=== PATIENT | male | born 1980 | race Caucasian/White ===

== ENCOUNTER 2016-09-20 09:54 | Emergency (ER) | payer BC ==
[~2016-09-20] VITALS: Ht 180.3 cm; Wt 89.7 kg
[~2016-09-20 09:54] MED LIST: DEXL60CA4 PO; LPT/20 PO
[2016-09-20 10:04] VITALS: Ht 180.3 cm; Wt 89.7 kg
[2016-09-20] MEDS ORDERED: ONDANSETRON INJ 2 MG/ML 2 ML VIAL IV STA (10:23)
[2016-09-20] MEDS ORDERED: SODIUM CHLORIDE 0.9% 1000ML 1,000 ML IV STA (10:23)
[2016-09-20 10:45] LABS: BASO % 0.1 %; BASO ABS # 0.02 K/uL (0-0.2); COMPLETE YES; HEMATOCRIT 46.6 % (42-52); IG% 0.3 %; LYMPH % 7.4 %; LYMPH ABS # 1.02 K/uL (1.2-3.4); MEAN CELL VOLUME 91.2 fL (80-100); MEAN CORPUSCULAR HEMOGLOBIN 30.5 pg (25-34); MEAN CORPUSCULAR HGB CONC 33.5 g/dl (32-36); MEAN PLATELET VOLUME 11.2 fL (7.4-10.4); MONO % 10.1 %; NEUT % 82.1 %; PLATELET COUNT 139 K/uL (130-400); RED BLOOD COUNT 5.11 M/uL (4.7-6.1); WHITE BLOOD COUNT 13.84 K/uL (4.8-10.8)
--- NOTE | 2016-09-20 10:48 | DIAGNOSTIC IMAGING REPORT ---
CHEST ONE VIEW PORTABLE CLINICAL HISTORY: Fever. Pain radiating to the abdomen. COMPARISON STUDY: 05/07/2014 FINDINGS: The cardiac and mediastinal contours are normal. There is no evidence of focal pulmonary consolidation. There is no evidence of failure. No pleural effusions are visualized.[ There is no free intraperitoneal air. IMPRESSION: No active disease in the chest. Electronically signed by: Yaakov Leone M.D. 09/20/2016 10:47 AM Dictated Date/Time: 09/20/2016 10:46 AM
[2016-09-20] MEDS ORDERED: OPTIRAY 320 IV PRN (11:00)
[2016-09-20 11:07] LABS: BUN/CREATININE RATIO 9.1 (10-20); CREATININE 1.5 mg/dl (0.60-1.40); POTASSIUM 3.6 mmol/L (3.5-5.1)
[2016-09-20 12:00] LABS: URINE APPEARANCE CLEAR (CLEAR); URINE BILIRUBIN NEG (NEG); URINE COLOR DK YELLOW; URINE NITRITE NEG (NEG); URINE SPECIFIC GRAVITY 1.025 (1.000-1.030); UROBILINOGEN POS (NEG); ZZUR CULT IF INDIC CLEAN CATCH NO
[2016-09-20 12:03] LABS: MANUAL MICROSCOPIC REQUIRED? NO; REVIEW REQ? NO
--- NOTE | 2016-09-20 13:10 | DIAGNOSTIC IMAGING REPORT ---
CT ABD/PELVIS IV AND ORAL CONT CLINICAL HISTORY: Left lower quadrant abdominal pain. Fever. Headache. COMPARISON STUDY: None. TECHNIQUE: Following the IV administration of 94 mL of Optiray-320, CT scan of the abdomen and pelvis was performed from the lung bases to the proximal femurs. Images are reviewed in the axial, sagittal, and coronal planes. IV contrast was administered without complication. CT DOSE: 399.15 mGy.cm FINDINGS: Lower chest: There are mild bibasal atelectatic changes. Liver: The contrast-enhanced liver is normal in size, contour, and attenuation. There is no intrahepatic biliary ductal dilatation. The hepatic veins and portal veins are patent. Gallbladder: Unremarkable. Spleen: Normal in size and attenuation. Pancreas: Unremarkable. Adrenal glands: Unremarkable. Kidneys: There is symmetric renal cortical enhancement. The kidneys are normal in size without hydronephrosis. Bowel: There are no transition zones indicate bowel obstruction. The appendix appears normal. There is no acute diverticulitis. There is no pathologic bowel wall thickening. Peritoneum: There is no intraperitoneal free air or abdominal ascites. There are postsurgical changes of a right inguinal hernia repair Vasculature: The abdominal aorta is normal in course and caliber. There is a retroaortic left renal vein Adenopathy: None. Pelvic viscera: The bladder, and pelvic viscera are unremarkable. Skeletal structures: No destructive osseous lesions are seen. IMPRESSION: 1. No acute intra-abdominal or pelvic findings 2. No evidence of bowel obstruction. No evidence of free air 3. Normal appendix. No evidence of acute diverticulitis. Electronically signed by: Yaakov Leone M.D. 09/20/2016 1:09 PM Dictated Date/Time: 09/20/2016 1:06 PM
[2016-09-20 13:35] VITALS: BP 113/71; PULSE 90; TEMP 39.2; O2SAT 97
--- NOTE | 2016-09-20 13:36 | EMERGENCY ROOM VISIT NOTE ---
History Report prepared by Biancaibvahe: Anthony Carlin Under the Supervision of: Dr. Alfredo Cooley D.O. First contact with patient: 10:12 Chief Complaint: FEVER Stated Complaint: HIGH FEVER, ACHEY History of Present Illness The patient is a 36 year old male who presents to the Emergency Room with complaints of waxing and waning fevers beginning two days ago. He also complains of a mild headache, nausea, LLQ abdominal pain, and a mild sore throat. He states that his fever tends to spike a few hours after eating. He states that his temperature has fluctuated between 101 and 105 degrees over the past few days. The patient denies any cough, urinary symptoms, diarrhea or vomiting. He states that his abdominal pain began two days ago as well and has been worsening. He has not had a bowel movement in two days. Source of History: patient Onset: Two days ago Symptom Intensity: 101-105 degrees Quality: other (fevers) Timing: waxes/wanes Modifying Factors (Worsening): eating Associated Symptoms: + headache (mild), + sorethroat (mild), + nausea, + abdominal pain (LLQ), No vomiting, No diarrhea, No urinary symptoms Review of Systems See HPI for pertinent positives & negatives. A total of 10 systems reviewed and were otherwise negative. Past Medical & Surgical Medical Problems: (1) WANDER (acute kidney injury) (2) Chest pain (3) Elevated troponin (4) Fever (5) Hyperglycemia (6) Hypotension (7) Leukocytosis (8) No Known Active Medical Problems (9) Vomiting Family History No pertinent family history stated. Social History Smoking Status: Never Smoker Alcohol Use: none Drug Use: none Occupation Status: employed Current/Historical Medications No Active Prescriptions or Reported Meds Allergies Coded Allergies: No Known Allergies (Unverified , 09/20/16) Physical Exam Vital Signs Date Time Temp Pulse Resp B/P (MAP) Pulse Ox O2 Delivery O2 Flow Rate FiO2 09/20/16 13:35 39.2 90 18 113/71 97 09/20/16 11:31 90 18 123/73 98 Room Air 09/20/16 10:04 37.7 97 18 126/75 94 Room Air Physical Exam CONSTITUTIONAL/VITAL SIGNS: Reviewed / noted above. GENERAL: Non-toxic in appearance. INTEGUMENTARY: Warm, dry, and [place]. HEAD: Normocephalic. EYES: without scleral icterus or trauma. ENT/OROPHARYNX: clear and moist. LYMPHADENOPATHY/NECK: Is supple without lymphadenopathy or meningismus. RESPIRATORY: Lungs clear and equal. CARDIOVASCULAR: Regular rate and rhythm. GI/ABDOMEN: Soft. No organomegaly or pulsatile mass. No rebound or guarding. Normal bowel sounds. Tender in the LLQ. EXTREMITIES: Warm and well perfused. BACK: No CVA tenderness. NEUROLOGICAL: Intact without focal deficits. PSYCHIATRIC: normal affect. MUSCULOSKELETAL: Normally developed with good muscle tone. Medical Decision & Procedures ER Provider Diagnostic Interpretation: Radiology results as stated below per my review and radiologist interpretation: CT ABD/PELVIS IV AND ORAL CONT FINDINGS: Lower chest: There are mild bibasal atelectatic changes. Liver: The contrast-enhanced liver is normal in size, contour, and attenuation. There is no intrahepatic biliary ductal dilatation. The hepatic veins and portal veins are patent. Gallbladder: Unremarkable. Spleen: Normal in size and attenuation. Pancreas: Unremarkable. Adrenal glands: Unremarkable. Kidneys: There is symmetric renal cortical enhancement. The kidneys are normal in size without hydronephrosis. Bowel: There are no transition zones indicate bowel obstruction. The appendix appears normal. There is no acute diverticulitis. There is no pathologic bowel wall thickening. Peritoneum: There is no intraperitoneal free air or abdominal ascites. There are postsurgical changes of a right inguinal hernia repair Vasculature: The abdominal aorta is normal in course and caliber. There is a retroaortic left renal vein Adenopathy: None. Pelvic viscera: The bladder, and pelvic viscera are unremarkable. Skeletal structures: No destructive osseous lesions are seen. IMPRESSION: 1. No acute intra-abdominal or pelvic findings 2. No evidence of bowel obstruction. No evidence of free air 3. Normal appendix. No evidence of acute diverticulitis. Electronically signed by: Yaakov Leone M.D. CHEST ONE VIEW PORTABLE FINDINGS: The cardiac and mediastinal contours are normal. There is no evidence of focal pulmonary consolidation. There is no evidence of failure. No pleural effusions are visualized.[ There is no free intraperitoneal air. IMPRESSION: No active disease in the chest. Electronically signed by: Yaakov Leone M.D. Laboratory Results 09/20/16 10:31 Red Blood Count 5.11, Mean Corpuscular Volume 91.2, Mean Corpuscular Hemoglobin 30.5, Mean Corpuscular Hemoglobin Concent 33.5, Mean Platelet Volume 11.2, Neutrophils (%) (Auto) 82.1, Lymphocytes (%) (Auto) 7.4, Monocytes (%) (Auto) 10.1, Eosinophils (%) (Auto) 0.0, Basophils (%) (Auto) 0.1, Neutrophils # (Auto ) 11.36, Lymphocytes # (Auto) 1.02, Monocytes # (Auto) 1.40, Eosinophils # (Auto ) 0.00, Basophils # (Auto) 0.02 09/20/16 10:31 Test 09/20/16 10:31 09/20/16 11:45 White Blood Count 13.84 K/uL (4.8-10.8) Red Blood Count 5.11 M/uL (4.7-6.1) Hemoglobin 15.6 g/dL (14.0-18.0) Hematocrit 46.6 % (42-52) Mean Corpuscular Volume 91.2 fL (80-100) Mean Corpuscular Hemoglobin 30.5 pg (25-34) Mean Corpuscular Hemoglobin Concent 33.5 g/dl (32-36) Platelet Count 139 K/uL (130-400) Mean Platelet Volume 11.2 fL (7.4-10.4) Neutrophils (%) (Auto) 82.1 % Lymphocytes (%) (Auto) 7.4 % Monocytes (%) (Auto) 10.1 % Eosinophils (%) (Auto) 0.0 % Basophils (%) (Auto) 0.1 % Neutrophils # (Auto) 11.36 K/uL (1.4-6.5) Lymphocytes # (Auto) 1.02 K/uL (1.2-3.4) Monocytes # (Auto) 1.40 K/uL (0.11-0.59) Eosinophils # (Auto) 0.00 K/uL (0-0.5) Basophils # (Auto) 0.02 K/uL (0-0.2) RDW Standard Deviation 43.8 fL (36.4-46.3) RDW Coefficient of Variation 13.1 % (11.5-14.5) Immature Granulocyte % (Auto) 0.3 % Immature Granulocyte # (Auto) 0.04 K/uL (0.00-0.02) Anion Gap 6.0 mmol/L (3-11) Est Creatinine Clear Calc Drug Dose 71.8 ml/min Estimated GFR () 68.0 Estimated GFR (Non- 58.6 BUN/Creatinine Ratio 9.1 (10-20) Calcium Level 9.0 mg/dl (8.5-10.1) Total Bilirubin 0.8 mg/dl (0.2-1) Direct Bilirubin 0.2 mg/dl (0-0.2) Aspartate Amino Transf (AST/SGOT) 12 U/L (15-37) Alanine Aminotransferase (ALT/SGPT) 17 U/L (12-78) Alkaline Phosphatase 71 U/L (45-117) Total Protein 7.5 gm/dl (6.4-8.2) Albumin 3.3 gm/dl (3.4-5.0) Lipase 155 U/L (73-393) Lyme Disease IgM Antibody NEG (NEG) Urine Color DK YELLOW Urine Appearance CLEAR (CLEAR) Urine pH 7.0 (4.5-7.5) Urine Specific [place] 1.025 (1.000-1.030) Urine Protein 2+ (NEG) Urine Glucose (UA) NEG (NEG) Urine Ketones 1+ (NEG) Urine Occult Blood NEG (NEG) Urine Nitrite NEG (NEG) Urine Bilirubin NEG (NEG) Urine Urobilinogen POS (NEG) Urine Leukocyte Esterase NEG (NEG) Urine WBC (Auto) 1-5 /hpf (0-5) Urine RBC (Auto) 5-10 /hpf (0-4) Urine Hyaline Casts (Auto) 0 /lpf (0-5) Urine Epithelial Cells (Auto) 10-20 /lpf (0-5) Urine Bacteria (Auto) NEG (NEG) Laboratory results as stated above per my review. Medications Administered Medications (Trade) Dose Ordered Sig/Neymar Route Start Time Stop Time Status Last Admin Dose Admin Sodium Chloride 1,000 ml @ 999 mls/hr Q1H1M STAT IV 09/20/16 10:23 09/20/16 11:23 DC 09/20/16 10:37 999 MLS/HR Ondansetron HCl (Zofran Inj) 4 mg NOW STAT IV 09/20/16 10:23 09/20/16 10:26 DC 09/20/16 10:37 4 MG Ibuprofen (Motrin Tab) 800 mg NOW STAT PO 09/20/16 13:38 09/20/16 13:39 DC 09/20/16 13:44 800 MG ED Course 1016: Previous medical records were reviewed. The patient was evaluated in room A3. A complete history and physical examination was performed. 1023: Ordered Zofran Inj 4 mg IV, Sodium Chloride 1000 ml @ 999 mls/hr IV. 1338: Ordered Motrin Tab 800 mg PO. 1350: On reevaluation, the patient is resting comfortably. I discussed the results and findings with the patient. He verbalized agreement of the treatment plan. He was discharged home. Medical Decision Differential considered: pancreatitis, hepatitis, or acute cholecystitis, AAA, UTI, pyelonephritis, kidney stones, appendicitis, diverticulitis, shingles, bowel obstruction mesenteric ischemia, intussusception,hernia, testicular torsion, ovarian torsion, ruptured ovarian cyst,ectopic , . This is a 36-year-old male who presents to the ED with a chief complaint of a fever and left lower quadrant abdominal pain. He has had the symptoms for about 2 days. He reports associated nausea but no vomiting or diarrhea. He states he has not had a bowel movement for 3 days. His temperature here is 37.7. His physical exam reveals some tenderness in the left lower quadrant. No other symptoms to suggest a cause for his fever. White blood cell count 13.8. Chest x-ray was negative for acute disease. Creatinine is 1.5. Lipase was negative. CT scan of the abdomen and pelvis did not show any acute process. Urine did not show infection. The patient was told the results. He was treated with IV fluids and IV Zofran. He denies any possible tick exposures. No sick contacts. The cause of his symptoms at this time are unclear. He does not appear to have an acute intra-abdominal process. Lyme was negative. His symptoms could be viral. He did complain of some very mild congestion but nothing significant was found on exam. He was told to return if he develops any new or worsening symptoms. Impression Primary Impression: Fever Additional Impression: LLQ abdominal pain Scribe Attestation The scribe's documentation has been prepared under my direction and personally reviewed by me in its entirety. I confirm that the note above accurately reflects all work, treatment, procedures, and medical decision making performed by me. Departure Information Dispostion Home / Self-Care Prescriptions No Active Prescriptions or Reported Meds Referrals Emelia Rvai D.O. (PCP) Patient Instructions My [facility] Additional Instructions Follow-up with your doctor on Thursday or Thursday if symptoms persist. Return here for worsening or new concerns. Take Tylenol or Motrin as needed for symptoms. Drink plenty of fluids and rest. Problem Qualifiers
[2016-09-20] MEDS ORDERED: IBUPROFEN 800 MG TAB PO STA (13:38)
== END 2016-09-20 13:48 | disposition home or self-care (01) ==
LOC: C.EDB 09:56 → C.EDA 13:48
DX: R50.9 Fever, unspecified (principal); R10.32 Left lower quadrant pain; R11.0 Nausea; Z87.898 Personal history of other specified conditions

== ENCOUNTER 2016-09-21 03:11 | Inpatient (IN) | payer BC ==
[2016-09-21] VITALS (31 sets, daily range): BP systolic 103–133; BP diastolic 64–87; PULSE 63–91; TEMP 36.7–37.8; O2SAT 92–100; Ht 180.3 cm; Wt 91.8 kg
[~2016-09-21] VITALS: Ht 180.3 cm; Wt 91.8 kg
[2016-09-21] MEDS ORDERED: SODIUM CHLORIDE 0.9% 1000ML 1,000 ML IV STA ×3 (03:21→04:43)
[2016-09-21 03:39] LABS: BASO % 0.1 %; BASO ABS # 0.02 K/uL (0-0.2); COMPLETE YES; EOS % 0.2 %; HEMATOCRIT 41.4 % (42-52); IG% 0.3 %; LYMPH ABS # 1.71 K/uL (1.2-3.4); MEAN CORPUSCULAR HEMOGLOBIN 29.5 pg (25-34); MEAN CORPUSCULAR HGB CONC 33.1 g/dl (32-36); MEAN PLATELET VOLUME 10.6 fL (7.4-10.4); MONO % 12.6 %; NEUT % 74.8 %; PLATELET COUNT 145 K/uL (130-400); RED BLOOD COUNT 4.65 M/uL (4.7-6.1); WHITE BLOOD COUNT 14.27 K/uL (4.8-10.8)
[2016-09-21] MEDS ORDERED: ONDANSETRON INJ 2 MG/ML 2 ML VIAL IV STA (03:50)
[2016-09-21 03:56] LABS: POTASSIUM 3.7 mmol/L (3.5-5.1)
[2016-09-21] MEDS ORDERED: FENTANYL CITRATE INJ 50 MCG/1 ML 2 ML VIAL IV STA ×2 (04:06→04:48)
[2016-09-21 04:14] LABS: BUN/CREATININE RATIO 10.6 (10-20); CALCIUM 8.9 mg/dl (8.5-10.1); CREATININE 1.6 mg/dl (0.60-1.40); MAGNESIUM 2.1 mg/dl (1.8-2.4)
[2016-09-21] MEDS ORDERED: OPTIRAY 320 IV PRN (04:15)
[2016-09-21] MEDS ORDERED: VANCOMYCIN INJ 2,300 MG in SODIUM CHLORIDE 0.9% 500ML 500 ML IV STA (04:43)
[2016-09-21] MEDS ORDERED: CEFEPIME IV 1,000 MG in DEXTROSE 5% 100ML 100 ML IV STA (04:43)
[2016-09-21] MEDS ORDERED: NOREPINEPHRINE BIT INJ 8 MG in DEXTROSE 5% 500ML 500 ML IV STA (05:26)
[2016-09-21] MEDS ORDERED: DOBUTamine / D5W 500 MG IV STA ×2 (05:33→06:10)
--- NOTE | 2016-09-21 05:56 | Critical Care Consultation ---
Critical Care Consultation Date of Consultation: Sep 21, 2016. Attending Physician: Dr. Raul Fisher Reason for Consultation: Chest Pain and Vomiting History of Present Illness Ramu Medina is a 36 yo male who presents to the ED for the second time in 24 hours. He complains of a waxing and waning fever since peaking out around 105 which he was taking ibuprofen and tylenol for. He came into the ED with LLQ Pain yesterday with a presumed viral diagnosis yesterday and returned home. His fever ultimately broke, however, he began feeling nauseous and vomiting. He states the vomit was dark brown with speaks; possibly like coffee grounds. He was also experiencing dark brown watery stools. He denies blood, black or tarry appearance. During the early hour mornings he began having 10/10 chest pain that radiated through to his back slightly. He came to the ED again. Where he was found to be hypotensive. He underwent 3L fluid resuscitation with SBP remaining in the 80's. Pt underwent CT Chest that demonstrates a Aortic Root of 3.7cm and a small pericardial effusion. EKG in the ED demonstrated T wave inversions and Left Cyclone Deviation. Troponin was 4.150 and Lactic Acid was 1.94. Creatine is elevated at 1.6. Dr. Walsh was contacted and requested pt start a Dobutamine drip; which brought pts SBP to the mid 90's after 5 minutes. An emergent ECHO was order as well as Cardiology Consult. Pt was consented by Dr. Cotton for Arterial and Central line. Pt does complain of overall body aches. Denies change of vision, trouble breathing, cough, abd pain. He denies prior similar symptoms nor sick contacts. Past Medical/Surgical History Medical Problems: (1) Chest pain (2) No Known Active Medical Problems Family History No Family cardiac issue, unexplained , or cardiac . Social History Smoking Status: Never Smoker Smokeless Tobacco Use: No Alcohol Use: none Drug Use: none Marital Status: single Occupation Status: employed Allergies Coded Allergies: No Known Allergies (Unverified , 09/20/16) Home Medications No Active Prescriptions or Reported Meds Current Inpatient Medications Current Inpatient Medications Medications (Trade) Dose Ordered Sig/Neymar Route Start Time Stop Time Status Last Admin Dose Admin Ioversol (Optiray 320) 125 ml UD PRN IV 09/21/16 04:15 09/25/16 04:14 Vancomycin HCl 2300 mg/Sodium Chloride 546 ml @ 200 mls/hr ONE STAT IV 09/21/16 04:43 09/21/16 07:26 09/21/16 05:35 200 MLS/HR Review of Systems 12 systems reviewed and negative other than previously mentioned in the HPI. Physical Exam Date Time Temp Pulse Resp B/P (MAP) Pulse Ox O2 Delivery O2 Flow Rate FiO2 09/21/16 05:45 77 20 96/64 97 09/21/16 05:30 75 16 80/61 97 Nasal Cannula 2.0 09/21/16 05:19 67 16 82/61 95 Nasal Cannula 2.0 09/21/16 05:05 Nasal Cannula 2.0 09/21/16 04:54 68 20 96/66 96 Room Air 09/21/16 04:30 64 16 91/71 97 Room Air 09/21/16 03:45 62 16 90/69 97 09/21/16 03:35 61 20 89/66 100 Room Air 09/21/16 03:25 64 09/21/16 03:23 36.7 60 18 89/64 97 Room Air 09/21/16 03:13 18 79/55 Room Air Vital Signs - as noted Laboratory Data - as noted Physical Exam: General - NAD, Resting comfortably with Nasal Cannula in place Eyes - PERRL, EOMI No icterus, gaze conjugate ENT - Mucosa moist, no lesions or candidiasis Neck - Supple, trachea midline, no masses or lymphadenopathy, no JVD or bruits Lungs - No paradoxical chest wall movement, clear to auscultation bilaterally, no wheezes, rales, or rhonchi Heart - Reg rate and rhythm, No murmur, rubs, clicks, or gallops appreciated Abdomen - hypoactive BS present, no bruits noted, tympanic to percussion, soft, nontender, nondistended, no organomegaly Extremities - No edema, pedal pulses intact Neuro - A&O x 4 Strength extremities equal and appropriate bilaterally Reflexes: normal and equal CN:PERRL, EOMI, no facial asymmetry, uvula/tongue midline Laboratory Results Last 24 Hours Test 09/21/16 03:00 09/21/16 04:12 09/21/16 05:43 White Blood Count 14.27 K/uL Red Blood Count 4.65 M/uL Hemoglobin 13.7 g/dL Hematocrit 41.4 % Mean Corpuscular Volume 89.0 fL Mean Corpuscular Hemoglobin 29.5 pg Mean Corpuscular Hemoglobin Concent 33.1 g/dl Platelet Count 145 K/uL Mean Platelet Volume 10.6 fL Neutrophils (%) (Auto) 74.8 % Lymphocytes (%) (Auto) 12.0 % Monocytes (%) (Auto) 12.6 % Eosinophils (%) (Auto) 0.2 % Basophils (%) (Auto) 0.1 % Neutrophils # (Auto) 10.67 K/uL Lymphocytes # (Auto) 1.71 K/uL Monocytes # (Auto) 1.80 K/uL Eosinophils # (Auto) 0.03 K/uL Basophils # (Auto) 0.02 K/uL RDW Standard Deviation 43.6 fL RDW Coefficient of Variation 13.3 % Immature Granulocyte % (Auto) 0.3 % Immature Granulocyte # (Auto) 0.04 K/uL Sodium Level 140 mmol/L Potassium Level 3.7 mmol/L Chloride Level 106 mmol/L Carbon Dioxide Level 25 mmol/L Anion Gap 9.0 mmol/L Blood Urea Nitrogen 17 mg/dl Creatinine 1.60 mg/dl Est Creatinine Clear Calc Drug Dose 72.9 ml/min Estimated GFR () 62.9 Estimated GFR (Non- 54.2 BUN/Creatinine Ratio 10.6 Random Glucose 143 mg/dl Calcium Level 8.9 mg/dl Magnesium Level 2.1 mg/dl Total Bilirubin 0.5 mg/dl Direct Bilirubin 0.1 mg/dl Aspartate Amino Transf (AST/SGOT) 28 U/L Alanine Aminotransferase (ALT/SGPT) 22 U/L Alkaline Phosphatase 70 U/L Troponin I 4.150 ng/ml Total Protein 7.2 gm/dl Albumin 3.2 gm/dl Bedside Lactic Acid Venous 1.94 mmol/L Diagnostic Results CTA: 09/21/16 No Evidence of PE. Thoracic Aorta is normal in caliber without evidence of dissection. Small pericardial effusion. Mild cardiomegaly. Lungs are clear. Tiny bilateral pleural effusions. CT Dissection: Pending ECHO: Pending Assessment & Plan (1) Vomiting (2) Fever (3) WANDER (acute kidney injury) (4) Hypotension (5) Leukocytosis (6) Elevated troponin (7) Hyperglycemia (8) Chest pain Reason Critically Ill: Patient is an 36-year-old male who is transferred to the ICU for suspicion of viral myocarditis. Urgent Cardiac ECHO pending, self read as globally depressed. In additional to viral symptoms, EKG changes, and elevated Troponin. PLAN: CV: * Official ECHO Pending * Dobutamine for increase squeeze and elevation of SBP * Consented to Central and Arterial Line * Cardiology Consult Pending * Trend Troponin * Viral Titers Pending * Obtain drug screen Fluids/Renal: * D/C all fluids * Pt will begin full fluid diet * Follow Daily PRP Neuro: * Pt denies pain current Resp: * Supplemental oxygen as required * Monitor on Telemetry * Monitor for Fluid Overload ID: * Leukocytosis: Trend CBC daily * Abx: Cefepime and Vancomycin Day 1 * Lactic Acid < 2.0 * Procalcitonin Pending GI/Nutrition: * Full Liquid Diet Heme: * H&H Stable * Follow Daily Labs Endocrine: * Accu-Checks per protocol, started insulin infusion for 2 blood sugars greater than 180 * Obtain TSH CCT: 45 Minutes; This time is exclusive of all separately billable procedures. Thank you for involving us in the care of this patient. Please refer to Dr. Osmel Walsh's addendum for further recommendations. I have personally evaluated and examined this patient. I agree with assessment and plan of Malik Alfonso PA-C. Right internal jugular central venous catheter placed. Creatinine clearance 72.9, no dose adjustment for colchicine. Colchicine given for myopericarditis, will watch creatinine clearance. Wean dobutamine as tolerated
[2016-09-21 05:57] LABS: INR 1.1 (0.9-1.1); PROTHROMBIN TIME (PATIENT) 11.7 SECONDS (9.0-12.0)
--- NOTE | 2016-09-21 06:11 | EMERGENCY ROOM VISIT NOTE ---
History First contact with patient: 03:20 Chief Complaint: VOMITING Stated Complaint: SEVERE CHEST PAIN,VOMITING,IN EARLIER HIGH FEVER Nursing Triage Summary: Pt woke up this morning with nausea, vomiting and chest pain. Pt was here yesterday and evaluated for fevers. History of Present Illness The patient is a 36 year old male who presents to the Emergency Room with complaints of chest pain. The patient was seen here yesterday afternoon for abdominal pain and fever. He states that he was feeling slightly better at home , but woke up in the middle of the night with substernal chest pain and vomiting. The patient reports a burning pain. He also reports a feeling of lightheadedness. He is slightly short of breath. He reports the pain radiates into his shoulders. The patient has been having intermittent fevers for the past 3 days. They have been ranging from 103F to 105F. He has been taking Tylenol and ibuprofen but states that the fevers have not dropped below 100F. The patient has not had any chest pain prior to this morning. He has a history of GERD but denies any other medical problems. He denies alcohol or drug use. He rates his current discomfort an 8/10. Review of Systems A complete 10 point review of systems was reviewed with the patient with pertinent positives and negatives as per history of present illness. All else were negative. Past Medical/Surgical History Medical Problems: (1) WANDER (acute kidney injury) (2) Chest pain (3) Elevated troponin (4) Fever (5) Hyperglycemia (6) Hypotension (7) Leukocytosis (8) No Known Active Medical Problems (9) Shock (10) Vomiting Social History Smoking Status: Never Smoker Alcohol Use: none Drug Use: none Occupation Status: employed Current/Historical Medications No Active Prescriptions or Reported Meds Allergies Coded Allergies: No Known Allergies (Unverified , 09/20/16) Physical Exam Vital Signs Date Time Temp Pulse Resp B/P (MAP) Pulse Ox O2 Delivery O2 Flow Rate FiO2 09/21/16 07:16 104/73 09/21/16 07:15 70 21 97 09/21/16 07:11 102/74 09/21/16 07:06 103/70 09/21/16 07:01 104/74 09/21/16 07:00 70 20 96 09/21/16 06:56 106/73 09/21/16 06:55 97 Nasal Cannula 2.0 09/21/16 06:51 97/68 09/21/16 06:46 97/75 09/21/16 06:45 73 20 97/75 98 09/21/16 06:45 75 25 96 09/21/16 06:40 76 20 105/72 97 09/21/16 06:35 75 20 101/73 96 09/21/16 06:30 76 20 111/72 97 09/21/16 06:25 76 22 102/71 97 09/21/16 06:20 78 20 101/76 97 09/21/16 06:15 73 20 105/75 97 09/21/16 06:10 74 16 100/71 97 09/21/16 06:05 75 20 99/73 99 Nasal Cannula 2.0 09/21/16 06:00 72 20 102/73 99 09/21/16 05:54 72 20 92/67 97 Nasal Cannula 2.0 09/21/16 05:45 77 20 96/64 97 09/21/16 05:30 75 16 80/61 97 Nasal Cannula 2.0 09/21/16 05:19 67 16 82/61 95 Nasal Cannula 2.0 09/21/16 05:05 Nasal Cannula 2.0 09/21/16 04:54 68 20 96/66 96 Room Air 09/21/16 04:30 64 16 91/71 97 Room Air 09/21/16 03:45 62 16 90/69 97 09/21/16 03:35 61 20 89/66 100 Room Air 09/21/16 03:25 64 09/21/16 03:23 36.7 60 18 89/64 97 Room Air 09/21/16 03:13 18 79/55 Room Air Physical Exam VITALS: Vitals are noted on the nurse's note and reviewed by myself. Vital signs stable. GENERAL: This is a 36-year-old male, diaphoretic, pale. EARS: External auditory canals clear, tympanic membranes pearly dhillon without erythema or effusion bilaterally. EYES: Pupils equal round and reactive to light and accommodation. Conjunctivae without injection, sclerae without icterus. MOUTH: Mucous membranes moist. NECK: Supple without nuchal rigidity. HEART: Regular rate and rhythm without murmurs gallops or rubs. JVD noted. LUNGS: Clear to auscultation bilaterally without wheezes, rales or rhonchi. No retractions or accessory muscle use. ABDOMEN: Positive bowel sounds x 4. Soft, mild left lower quadrant tenderness. NEURO: Patient was alert and oriented to person place and time. Medical Decision & Procedures ER Provider Diagnostic Interpretation: CHEST X-RAY: Mediastinum appears slightly lightheaded when compared to previous chest x-ray. This may be related to positioning. No significant cardiomegaly. No infiltrates. CTA CHEST: No evidence of PE. Thoracic aorta is normal in caliber without evidence of dissection. Small pericardial effusion. Mild cardiomegaly. Lungs are clear. Tiny bilateral pleural effusions. Radiologist: Dylan Meza MD Laboratory Results Test 09/21/16 03:00 09/21/16 04:12 09/21/16 07:14 Erythrocyte Sedimentation Rate 47 mm/hr (0-14) Prothrombin Time 11.7 SECONDS (9.0-12.0) Prothromb Time International Ratio 1.1 (0.9-1.1) Activated Partial Thromboplast Time 26.7 SECONDS (21.0-31.0) Partial Thromboplastin Ratio 1.0 Est Creatinine Clear Calc Drug Dose 72.9 ml/min C-Reactive Protein 10.00 mg/dl (0-0.29) Procalcitonin 0.53 ng/ml (0-0.5) Lyme Disease IgG Antibody NEG (NEG) Lyme Disease IgM Antibody NEG (NEG) Bedside Lactic Acid Venous 1.94 mmol/L (0.90-1.70) Thyroid Stimulating Hormone (TSH) 1.940 uIu/ml (0.300-4.500) Free Thyroxine 1.05 ng/dl (0.80-1.60) Medications Administered Medications (Trade) Dose Ordered Sig/Neymar Route Start Time Stop Time Status Last Admin Dose Admin Sodium Chloride 1,000 ml @ 999 mls/hr Q1H1M STAT IV 09/21/16 03:21 09/21/16 04:21 DC 09/21/16 03:36 999 MLS/HR Sodium Chloride 1,000 ml @ 999 mls/hr Q1H1M STAT IV 09/21/16 03:50 09/21/16 04:50 DC 09/21/16 03:55 999 MLS/HR Ondansetron HCl (Zofran Inj) 4 mg NOW STAT IV 09/21/16 03:50 09/21/16 03:51 DC 09/21/16 04:02 4 MG Fentanyl Citrate (Fentanyl Inj) 50 mcg NOW STAT IV 09/21/16 04:06 09/21/16 04:08 DC 09/21/16 04:13 50 MCG Sodium Chloride 1,000 ml @ 999 mls/hr Q1H1M STAT IV 09/21/16 04:43 09/21/16 05:43 DC 09/21/16 04:43 999 MLS/HR Cefepime HCl 1000 mg/Dextrose 111.3 ml @ 200 mls/hr NOW STAT IV 09/21/16 04:43 09/21/16 05:16 DC 09/21/16 05:01 200 MLS/HR Vancomycin HCl 2300 mg/Sodium Chloride 546 ml @ 200 mls/hr ONE STAT IV 09/21/16 04:43 09/21/16 07:26 DC 09/21/16 05:35 200 MLS/HR Fentanyl Citrate (Fentanyl Inj) 50 mcg NOW STAT IV 09/21/16 04:48 09/21/16 04:49 DC 09/21/16 04:53 50 MCG Dobutamine HCl 250 ml @ 0 mls/hr Q0M STAT IV 09/21/16 05:33 09/21/16 05:35 DC 09/21/16 05:44 2.7 MLS/HR Acetaminophen (Tylenol Tab) 650 mg Q4H PRN PO 09/21/16 06:15 10/21/16 06:14 09/22/16 05:53 650 MG ECG Rate (beats per minute): 60 Rhythm: normal sinus Findings: ST depression (New ST depressions and T wave inversion V1 V2), no ectopy, other (low voltage QRS) Change: New ST depressions and T-wave inversions in V1 and V2, QRS voltage has decreased. ED Course The patient was evaluated as above. Labs were drawn. 2 large-bore IVs were obtained. Fluids were started immediately. Patient was given 50 g of fentanyl for pain and [address] for nausea. CT of the chest was performed due to questionable abnormalities on chest x-ray. Patient was given a third liter of fluid due to persistent hypotension. Patient had persistent hypotension not responsive to IV fluids. A dobutamine drip was started. Patient's blood pressure began to improve. Dr. Walsh and Layla Alfonso of critical care were consulted to see the patient. Dr. Shanks of cardiology was consulted. He will see the patient and a stat echo will be performed. Case was discussed with the [facility] hospitalist, Dr. Fishre. The patient will be admitted to the ICU for further evaluation and treatment. Medical Decision Differential diagnosis includes sepsis, myocarditis, endocarditis, pericarditis , aortic dissection, pulmonary embolism, esophageal rupture, among others. The patient is a 36-year-old male who presents today complaining of acute onset of chest pain and vomiting. Previous records were reviewed. The patient was hypotensive on initial examination. Blood pressure was not responsive to fluids and dobutamine drip was started, which did improve the blood pressure. Initial labs revealed a troponin of 4. EKG showed new ST depressions in V1 and V2 and low voltage QRS. Leukocytosis of 14,000. Creatinine of 1.6, slightly elevated from the patient's baseline of 1.3. CT chest showed mild cardiomegaly and a small pericardial effusion. Presentation is consistent with myocarditis. Sedimentation rate, CRP and procalcitonin were ordered. Critical care and cardiology were consulted. Stat echo was performed. Patient will be admitted to the ICU for further care. Medication reconciliation: I attest that I have personally reviewed the patient 's current medication list. Blood pressure screening: Patient was found to be hypotensive. His blood pressure will be followed by the hospitalist service. Impression Primary Impression: Myocarditis Additional Impressions: Acute kidney injury Hypotension Critical Care I have personally spent greater than 130 minutes of critical care time in the direct management of this patient. This includes bedside care, interpretation of diagnostic studies, and testing, discussion with consultants, patient, and family members, and other required patient management activities. This 130 minutes is in excess of all separately billable procedures. Departure Information Prescriptions No Active Prescriptions or Reported Meds Referrals Emelia Ravi D.O. (PCP) Patient Instructions [facility] Problem Qualifiers
[2016-09-21] MEDS ORDERED: LORAZEPAM 0.5 MG TAB PO PRN (06:15)
[2016-09-21] MEDS ORDERED: MoRPHine SULFATE 4 MG/ML 1 ML CARP\\VIAL IV PRN (06:15)
--- NOTE | 2016-09-21 06:38 | History and Physical ---
History & Physical Date & Time of Service: Sep 21, 2016 at 06:18 Chief Complaint: Severe Chest Pain,Vomiting,In Earlier High Fever Primary Care Physician: Emelia Ravi D.O. History of Present Illness Source: patient 36 y/o M - no significant medical history. Developed fevers 3 days prior without a discernible focus of infection. Beginning one day ago he developed nausea, vomiting and diarrhea and presented to the hospital for evaluation. He was treated symptomatically and discharged. He had felt improved earlier in the day and then woke up from sleep with central chest pain and lightheadedness. He returned to the ER where he was found to be hypotensive. Initial labs revealed a troponin of 4.0. An EKG was significant for low voltage. His BP did not initially respond to fluids and he was placed on a low dose of dobutamine which did lead to improvement. Past Medical/Surgical History Denies any chronic medical issues Family History Ftaher owing to lung CA - Mother is healthy - required surgery for an incarcerated hernia Social History He does not drink or smoke. He works in [employer] for the [employer]. Smoking Status: Never Smoker Drug Use: none Occupational Status: employed Allergies Coded Allergies: No Known Allergies (Unverified , 09/20/16) Home Medications No Active Prescriptions or Reported Meds Review of Systems Constitutional: + fever, + chills, + sweats Eyes: No worsening of vision ENT: No hearing loss, No unusual epistaxis, No nasal symptoms Respiratory: + shortness of breath, No cough, No sputum, No wheezing Cardiovascular: + chest pain Abdomen: + pain, + nausea, + vomiting Musculoskeletal: No joint pain, No muscle pain Genitourinary - Male: No hematuria, No dysuria Neurologic: + weakness, No memory loss, No paralysis Psychiatric: No depression symptoms Endocrine: No fatigue Hematologic / Lymphatic: No abnormal bleeding/bruising Integumentary: No rash Allergic / Immunologic: No environmental allergies Physical Exam Vital Signs Date Time Temp Pulse Resp B/P (MAP) Pulse Ox O2 Delivery O2 Flow Rate FiO2 09/21/16 06:15 73 20 105/75 97 09/21/16 06:10 74 16 100/71 97 09/21/16 06:05 75 20 99/73 99 Nasal Cannula 2.0 09/21/16 06:00 72 20 102/73 99 09/21/16 05:54 72 20 92/67 97 Nasal Cannula 2.0 09/21/16 05:45 77 20 96/64 97 09/21/16 05:30 75 16 80/61 97 Nasal Cannula 2.0 09/21/16 05:19 67 16 82/61 95 Nasal Cannula 2.0 09/21/16 05:05 Nasal Cannula 2.0 09/21/16 04:54 68 20 96/66 96 Room Air 09/21/16 04:30 64 16 91/71 97 Room Air 09/21/16 03:45 62 16 90/69 97 09/21/16 03:35 61 20 89/66 100 Room Air 09/21/16 03:25 64 09/21/16 03:23 36.7 60 18 89/64 97 Room Air 09/21/16 03:13 18 79/55 Room Air General Appearance: WD/WN, no apparent distress, + pertinent finding (Young average weight male - appears comfortable at the time of admission) Head: normocephalic Eyes: normal inspection ENT: normal ENT inspection Neck: supple, no JVD Respiratory/Chest: chest non-tender, lungs clear, normal breath sounds Cardiovascular: regular rate, rhythm, no edema, no gallop, no murmur, + JVD Abdomen/GI: normal bowel sounds, non tender, soft Back: normal inspection, no CVA tenderness Extremities/Musculoskelatal: normal inspection, no calf tenderness, normal capillary refill Neurologic/Psych: community pharmacist II-XII nml as tested, no motor/sensory deficits, alert, normal mood/affect, normal reflexes, oriented x 3 Skin: normal color, warm/dry, no rash Diagnostics Laboratory Results Results Past 24 Hours Test 09/21/16 03:00 09/21/16 04:12 Range/Units White Blood Count 14.27 4.8-10.8 K/uL Red Blood Count 4.65 4.7-6.1 M/uL Hemoglobin 13.7 14.0-18.0 g/dL Hematocrit 41.4 42-52 % Mean Corpuscular Volume 89.0 80-100 fL Mean Corpuscular Hemoglobin 29.5 25-34 pg Mean Corpuscular Hemoglobin Concent 33.1 32-36 g/dl Platelet Count 145 130-400 K/uL Mean Platelet Volume 10.6 7.4-10.4 fL Neutrophils (%) (Auto) 74.8 % Lymphocytes (%) (Auto) 12.0 % Monocytes (%) (Auto) 12.6 % Eosinophils (%) (Auto) 0.2 % Basophils (%) (Auto) 0.1 % Neutrophils # (Auto) 10.67 1.4-6.5 K/uL Lymphocytes # (Auto) 1.71 1.2-3.4 K/uL Monocytes # (Auto) 1.80 0.11-0.59 K/uL Eosinophils # (Auto) 0.03 0-0.5 K/uL Basophils # (Auto) 0.02 0-0.2 K/uL RDW Standard Deviation 43.6 36.4-46.3 fL RDW Coefficient of Variation 13.3 11.5-14.5 % Immature Granulocyte % (Auto) 0.3 % Immature Granulocyte # (Auto) 0.04 0.00-0.02 K/uL Prothrombin Time 11.7 9.0-12.0 SECONDS Prothromb Time International Ratio 1.1 0.9-1.1 Activated Partial Thromboplast Time 26.7 21.0-31.0 SECONDS Partial Thromboplastin Ratio 1.0 Sodium Level 140 136-145 mmol/L Potassium Level 3.7 3.5-5.1 mmol/L Chloride Level 106 98-107 mmol/L Carbon Dioxide Level 25 21-32 mmol/L Anion Gap 9.0 3-11 mmol/L Blood Urea Nitrogen 17 7-18 mg/dl Creatinine 1.60 0.60-1.40 mg/dl Est Creatinine Clear Calc Drug Dose 72.9 ml/min Estimated GFR () 62.9 Estimated GFR (Non- 54.2 BUN/Creatinine Ratio 10.6 10-20 Random Glucose 143 70-99 mg/dl Calcium Level 8.9 8.5-10.1 mg/dl Magnesium Level 2.1 1.8-2.4 mg/dl Total Bilirubin 0.5 0.2-1 mg/dl Direct Bilirubin 0.1 0-0.2 mg/dl Aspartate Amino Transf (AST/SGOT) 28 15-37 U/L Alanine Aminotransferase (ALT/SGPT) 22 12-78 U/L Alkaline Phosphatase 70 45-117 U/L Troponin I 4.150 0-0.045 ng/ml Total Protein 7.2 6.4-8.2 gm/dl Albumin 3.2 3.4-5.0 gm/dl Bedside Lactic Acid Venous 1.94 0.90-1.70 mmol/L Microbiology Results 09/21/16 Blood Culture, Received Pending 09/21/16 Blood Culture, Received Pending Diagnostic Radiology CT chest - cardiomegaly, small pericardial effusion, small pleural effusions EKG Low voltage - no evidence of acute ischemia Impression Assessment and Plan 36 y/o M - no significant medical history. Developed fevers 3 days prior without a discernible focus of infection. Beginning one day ago he developed nausea, vomiting and diarrhea and presented to the hospital for evaluation. He was treated symptomatically and discharged. He had felt improved earlier in the day and then woke up from sleep with central chest pain and lightheadedness. He returned to the ER where he was found to be hypotensive. Initial labs revealed a troponin of 4.0. An EKG was significant for low voltage. His BP did not initially respond to fluids and he was placed on a low dose of dobutamine which did lead to improvement. The pt is admitted to the ICU - Fact Checker and Nursing Resident consulted on an urgent basis. Urgent echo obtained and results are pending. Differential includes myocarditis and endocarditis with sepsis. Less likely would be an abdominal process with ACS. The pt remains on a low dose of Dobutamine pending cardiology assessment and blood pressure stabilization. We will continue IVF as he has tolerated 3 liters well. We will start broad spectrum antibiotics until blood cultures return. Gi symptoms will be treated symptomatically with antiemetics and analgesics as needed. Full code - SCDs pending cardio assessment in event that pt requires a pericardiocentesis. Total time for this admit including review of labs, meds, EKG - discussion with ER attending, mill manager and pt - including critical care time - 45 min Level of Care Critical Care Resuscitation Status FULL RESUSCITATION VTE Prophylaxis Given or contraindicated: SCD's
[2016-09-21] MEDS ORDERED: VANCOMYCIN CONSULT ACTIVE PRN (07:00)
--- NOTE | 2016-09-21 07:06 | DIAGNOSTIC IMAGING REPORT ---
CT ANGIOGRAM OF THE CHEST COMBO CLINICAL HISTORY: Atypical chest pain. Vomiting. COMPARISON STUDY: Chest CT dated 05/07/2014. Chest x-ray dated 09/21/2016. TECHNIQUE: Before and following the IV administration of 120 cc of Optiray 320, CT angiogram of the chest was performed from the thoracic inlet to the upper abdomen utilizing the dissection protocol. Images are reviewed in the axial, sagittal, and coronal planes. 3-D MIPS images are created and assessed. IV contrast was administered without complication. CT DOSE: 955.63 mGy.cm FINDINGS: Thyroid: Imaged portions of the thyroid gland are normal in size and attenuation. Thoracic aorta: No intramural hematoma is seen on the unenhanced series. There is minimal ectasia of the ascending thoracic aorta which measures up to 3.5 cm in diameter. The remainder of the thoracic aorta is normal and the arch demonstrates standard 3-vessel anatomy. No dissection is seen. The arch vessels are widely patent. Pulmonary vasculature: The main pulmonary arteries are mildly dilated suggesting pulmonary artery hypertension. There are no central filling defects identified in the pulmonary vessels to suggest pulmonary embolus. Note that this examination was not specifically protocoled to assess for pulmonary emboli. Heart: The heart is mildly enlarged and there is trace pericardial effusion. Lungs and pleural spaces: There are trace pleural effusions. The lungs are otherwise clear. No consolidation is identified. The trachea and central airways are pain. Mediastinum: There is no mediastinal lymphadenopathy. Alize: Clear. Axillae: There is no axillary lymphadenopathy. Upper abdomen: Partially visualized upper abdominal viscera is within normal limits. Skeletal structures: No lytic or blastic bony lesions are seen. IMPRESSION: 1. There is minimal ectasia of the ascending thoracic aorta which measures up to 3.5 cm. The remainder of the thoracic aorta is normal in caliber and no dissection is seen. 2. Cardiomegaly with trace pericardial effusion. 3. Trace pleural effusions. 4. No airspace consolidation is identified. 5. Additional findings as above. Electronically signed by: Sebas Gauthier M.D. 09/21/2016 7:05 AM Dictated Date/Time: 09/21/2016 6:57 AM
--- NOTE | 2016-09-21 07:17 | Cardiology Consultation ---
Cardiology Consultation Date of Consultation: Sep 21, 2016. Requesting Physician: Nico Attending Physician: Dimitris Reason for Consultation: EKG changes and possible myopericarditis History of Present Illness This is a 36-year-old gentleman who noted on that he started having fevers and chills with temperatures 104 degrees. he describes a diffuse abdominal discomfort. He denies any recent sick contacts. He notes he lives near the [facility] but is unaware of any tick bites. He was evaluated yesterday or his abdominal discomfort but denied any cardiac symptoms. He returned early this morning with high-grade fevers, lightheadedness, dizziness and weakness. He also last evening started having chest discomfort. He describes it is worse taking a deep breath. He did not notice if it was worse lying flat or sitting up. He also describes some shortness of breath. He notes no climbing stairs did not cause him to be significantly short of breath. He notes a bundle he felt fine he was able do all of his normal activities and did not notice a decline in his exercise capacity over the last couple of days or weeks before getting ill. He denies a cough, sputum production, lower extremity edema, or orthopnea. He notes his appetites been poor as well as his oral intake. When he was seen in the emergency room he was hypotensive and cold and clammy. He was given IV fluids and started on dobutamine with improvement in his blood pressure and his color. The rest of a complete Review of systems is negative Past Medical/Surgical History NONE Social History Smoking Status: Never Smoker History of Alcohol Use: No No drug use. does use protein supplements, denies steroids All Other Systems: Reviewed and Negative Allergies Coded Allergies: No Known Allergies (Unverified , 09/20/16) Medications Current Inpatient Medications Medications (Trade) Dose Ordered Sig/Neymar Route Start Time Stop Time Status Last Admin Dose Admin Ioversol (Optiray 320) 125 ml UD PRN IV 09/21/16 04:15 09/25/16 04:14 Vancomycin HCl 2300 mg/Sodium Chloride 546 ml @ 200 mls/hr ONE STAT IV 09/21/16 04:43 09/21/16 07:26 09/21/16 05:35 200 MLS/HR Acetaminophen (Tylenol Tab) 650 mg Q4H PRN PO 09/21/16 06:15 10/21/16 06:14 Lorazepam (Ativan Tab) 0.5 mg Q4H PRN PO 09/21/16 06:15 10/21/16 06:14 Pantoprazole Sodium 40 mg/ Syringe 10 ml @ 5 mls/min DAILY IV 09/21/16 09:00 10/21/16 08:59 UNV Morphine Sulfate (MoRPHine SULFATE INJ) 4 mg Q2H PRN IV 09/21/16 06:15 10/05/16 06:14 Vancomycin HCl 1000 mg/Sodium Chloride 270 ml @ 125 mls/hr Q12 IV 09/21/16 09:00 09/23/16 08:59 UNV Ceftriaxone Sodium 1 gm/ Dextrose 50 ml @ 100 mls/hr Q24H IV 09/21/16 06:45 09/23/16 06:44 UNV Vancomycin HCl (Consult) 1 ea UD PRN N/A 09/21/16 07:00 10/21/16 06:59 Physical Exam Vital Signs Past 12 Hours Date Time Temp Pulse Resp B/P (MAP) Pulse Ox O2 Delivery O2 Flow Rate FiO2 09/21/16 06:45 73 20 97/75 98 09/21/16 06:40 76 20 105/72 97 09/21/16 06:35 75 20 101/73 96 09/21/16 06:30 76 20 111/72 97 09/21/16 06:25 76 22 102/71 97 09/21/16 06:20 78 20 101/76 97 09/21/16 06:15 73 20 105/75 97 09/21/16 06:10 74 16 100/71 97 09/21/16 06:05 75 20 99/73 99 Nasal Cannula 2.0 09/21/16 06:00 72 20 102/73 99 09/21/16 05:54 72 20 92/67 97 Nasal Cannula 2.0 09/21/16 05:45 77 20 96/64 97 09/21/16 05:30 75 16 80/61 97 Nasal Cannula 2.0 09/21/16 05:19 67 16 82/61 95 Nasal Cannula 2.0 09/21/16 05:05 Nasal Cannula 2.0 09/21/16 04:54 68 20 96/66 96 Room Air 09/21/16 04:30 64 16 91/71 97 Room Air 09/21/16 03:45 62 16 90/69 97 09/21/16 03:35 61 20 89/66 100 Room Air 09/21/16 03:25 64 09/21/16 03:23 36.7 60 18 89/64 97 Room Air 09/21/16 03:13 18 79/55 Room Air Constitutional: General Apperance: well-developed Level of Distress: mild distress, acutely ill Psychiatric: Mental Status: active & alert, normal affect Lungs: Respiratory effort: no dyspnea Auscultation: breath sounds normal, no wheezing, no rales/crackles, no rhonchi Cardiovascular: Heart Auscultation: RRR, no murmurs, no rubs, no gallops Abdomen: Bowel Sounds: diminished Inspection & Palpation: soft, non-distended, pertinent finding (mil) Extremities: no edema, pertinent finding (ext are cool to touch) Data Laboratory Results: Last 24 Hours Test 09/21/16 03:00 09/21/16 04:12 09/21/16 06:46 09/21/16 06:50 White Blood Count 14.27 K/uL Red Blood Count 4.65 M/uL Hemoglobin 13.7 g/dL Hematocrit 41.4 % Mean Corpuscular Volume 89.0 fL Mean Corpuscular Hemoglobin 29.5 pg Mean Corpuscular Hemoglobin Concent 33.1 g/dl Platelet Count 145 K/uL Mean Platelet Volume 10.6 fL Neutrophils (%) (Auto) 74.8 % Lymphocytes (%) (Auto) 12.0 % Monocytes (%) (Auto) 12.6 % Eosinophils (%) (Auto) 0.2 % Basophils (%) (Auto) 0.1 % Neutrophils # (Auto) 10.67 K/uL Lymphocytes # (Auto) 1.71 K/uL Monocytes # (Auto) 1.80 K/uL Eosinophils # (Auto) 0.03 K/uL Basophils # (Auto) 0.02 K/uL RDW Standard Deviation 43.6 fL RDW Coefficient of Variation 13.3 % Immature Granulocyte % (Auto) 0.3 % Immature Granulocyte # (Auto) 0.04 K/uL Erythrocyte Sedimentation Rate 47 mm/hr Prothrombin Time 11.7 SECONDS Prothromb Time International Ratio 1.1 Activated Partial Thromboplast Time 26.7 SECONDS Partial Thromboplastin Ratio 1.0 Sodium Level 140 mmol/L Potassium Level 3.7 mmol/L Chloride Level 106 mmol/L Carbon Dioxide Level 25 mmol/L Anion Gap 9.0 mmol/L Blood Urea Nitrogen 17 mg/dl Creatinine 1.60 mg/dl Est Creatinine Clear Calc Drug Dose 72.9 ml/min Estimated GFR () 62.9 Estimated GFR (Non- 54.2 BUN/Creatinine Ratio 10.6 Random Glucose 143 mg/dl Calcium Level 8.9 mg/dl Magnesium Level 2.1 mg/dl Total Bilirubin 0.5 mg/dl Direct Bilirubin 0.1 mg/dl Aspartate Amino Transf (AST/SGOT) 28 U/L Alanine Aminotransferase (ALT/SGPT) 22 U/L Alkaline Phosphatase 70 U/L Troponin I 4.150 ng/ml C-Reactive Protein 10.00 mg/dl Total Protein 7.2 gm/dl Albumin 3.2 gm/dl Bedside Lactic Acid Venous 1.94 mmol/L Imaging: No dissection on CT chest EKG: NSR ST and AT changes consider inferior ischemia Bedside Echo. The LV appears mildly dilated and mildly hypokinetic in a global fashion. Ejection fraction by biplane Crowley's was 52% visually looks to be in the range of 50%. There is no cervical pericardial effusion. The visualized valves do not appear to have any obvious vegetations. There is no significant regurgitant lesions. The aortic root did not appear significantly dilated. His LVOT velocity was low normal. Assessment & Plan 1. Likely viral myopericarditis with associated fevers and chills, chest pain, mild global hypokinesis and mildly elevated troponin and hypotension 2. Acute renal failure 3. Elevated lactic acid level 4. Elevated sedimentation rate and CRP His EKG and echocardiogram were reviewed with the intensivists and ER physicians at the bedside. He appears to have a pattern of mild global hypokinesis consistent with myopericarditis and supportive care is recommended. There is no evidence for pericardial effusion. He has been started on dobutamine to improve his contractility and improve his cardiac output. This in combination with fluids has improved his blood pressure as well as his overall perfusion. At this point there are been no arrhythmias on the monitor. He will be admitted to the ICU for further close monitoring. Once his blood pressure improves and he is off dobutamine I would consider adding low-dose beta blockers to reduce his risk of ventricular arrhythmias and improve his LV function. There is nothing on his echocardiogram at this point to suggest endocarditis. Blood cultures and viral cultures have been ordered. 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 We will continue to follow along with you.
--- NOTE | 2016-09-21 07:33 | DIAGNOSTIC IMAGING REPORT ---
SINGLE VIEW CHEST CLINICAL HISTORY: Fever. Atypical chest pain and vomiting. FINDINGS: An AP, portable, upright chest radiograph is compared to study dated 09/20/2016. Correlation is made with chest CT dated 05/07/2014. The examination is degraded by portable technique and patient rotation. The heart is top normal for projection. Pulmonary vasculature is noncongested. The lungs and pleural spaces are clear. No pneumothorax is seen. The bony thorax is grossly intact. IMPRESSION: No acute cardiopulmonary abnormality. Electronically signed by: Sebas Gauthier M.D. 09/21/2016 7:31 AM Dictated Date/Time: 09/21/2016 7:30 AM
--- NOTE | 2016-09-21 07:41 | EMERGENCY ROOM VISIT NOTE ---
ED Visit Note First contact with patient: 03:20 I have personally evaluated and examined this patient. I agree with assessment and plan of Ayana Ronquillo PA-C. Hypotensive 36 yr old male with sternal chest pain in setting of viral like illness and vomiting. EKG with acute depressions though no STEMI. With fevers and symptoms sepsis of high concern and thus fluids/abx initiated. CXR appears increased mediastinum compared to previous from yesterday and given pain clearly dissection must be ruled out. CT with enlarged heart no dissection. Trop positive though repeat EKG stable to first. BP began dropping again after fluid boluses. Discussed with CC and started dobutamine. Cards involved for stat echo. Doing quite well on dobutamine. Admit to ICU for further management.
--- NOTE | 2016-09-21 07:56 | ECHOCARDIOGRAM REPORT ---
*NOTICE TO RECEIVING REPUBLICAN AGENCY This information is strictly Confidential and protected under [place] law. [place] law prohibits you from making any further disclosure of this information unless further disclosure is expressly permitted by the written consent of the person to whom it pertains or is authorized by law. A general authorization for the release of medical or other information is not sufficient for this purpose. Hospital accepts no responsibility if the information is made available to any other person, INCLUDING THE PATIENT. Interpretation Summary * Name: MARNIE [place] Study Date: 09/21/2016 06:07 AM BP: 102/71 mmHg * Patient Location: .EDB HR: 75 * : 1980 (M/d/yyyy) Gender: Male Height: 71 in * Age: 36 yrs Ethnicity: CA Weight: 200 lb * Ordering Physician: Jose Cotton * Referring Physician: Self, Referred * Performed By: Sen Sampson RDCS * * Reason For Study: Chest pain, myocarditis * BSA: 2.1 m2 * -- Conclusions -- * The left ventricle is normal in size. * There is normal left ventricular wall thickness. * Left ventricular systolic function is low normal. * LVEF while on Dobutamine by Bi Plane Crowley was 55% (visually 50-55%) * There is borderline global hypokinesis of the left ventricle. * The right ventricle is normal in size and function. * Trivial pericardial effusion * Normal Diastolic function. * Findings d/w the ICU and ER services Procedure Details * A complete two-dimensional transthoracic echocardiogram was performed (2D, M-mode, Doppler and color flow Doppler). * The study was technically adequate. * The study was technically difficult, but visualization was adequate with the administration of Definity ultrasound contrast. * A contrast injection of Definity was performed to improve assessment of LV function. * Contrast was injected into an intravenous site in the left arm. * One vial of Definity ultrasound contrast was diluted in normal saline to a total volume of 10 ml. A total of '2' ml of solution was administered during imaging. * Lot # [id number] of Definity utilized for procedure. * Expiration date 1AUG18. * The attending nurse who injected the contrast agent was ED NURSE, RN. Left Ventricle * The left ventricle is normal in size. * There is normal left ventricular wall thickness. * Left ventricular systolic function is low normal. * LVEF while on Dobutamine by Bi Plane Crowley was 55% (visually 50-55%) * There is borderline global hypokinesis of the left ventricle. Right Ventricle * The right ventricle is normal in size and function. Atria * The left atrial size is normal. * Right atrial size is normal. Mitral Valve * The mitral valve is grossly normal. * There is trace mitral regurgitation. Tricuspid Valve * The tricuspid valve is not well visualized, but is grossly normal. * There is trace tricuspid regurgitation. Aortic Valve * The aortic valve is trileaflet. * No aortic regurgitation is present. Pulmonic Valve * The pulmonic valve is not well seen, but is grossly normal. * The pulmonic valve is not well visualized. Great Vessels * The aortic root is normal size. Pericardium/Pleural * Trivial pericardial effusion Great Vessels * Dilated inferior vena cava with reduced collapsability with sniff indicates an elevated right atrial pressure of 15 mmHg Left Ventricular Diastolic Function * Normal Diastolic function. MMode 2D Measurements and Calculations IVSd 1.0 cm IVSs 1.4 cm LVIDd 4.4 cm LVIDs 3.8 cm LVPWd 1.0 cm LVPWs 1.2 cm IVS/LVPW 1.0 FS 14.5 % EDV(Teich) 89.1 ml ESV(Teich) 61.4 ml EF(Teich) 31.1 % EDV(cubed) 86.9 ml ESV(cubed) 54.2 ml EF(cubed) 37.6 % % IVS thick 36.5 % % LVPW thick 17.1 % LV mass(C)d 153.7 grams LV mass(C)dI 72.9 grams/m\S\2 LV mass(C)s 171.0 grams LV mass(C)sI 81.1 grams/m\S\2 SV(Teich) 27.7 ml SI(Teich) 13.1 ml/m\S\2 SV(cubed) 32.7 ml SI(cubed) 15.5 ml/m\S\2 Ao root diam 3.3 cm Ao root area 8.7 cm\S\2 LA dimension 3.7 cm asc Aorta Diam 3.5 cm LA/Ao 1.1 LVOT diam 2.1 cm LVOT area 3.4 cm\S\2 LVAd ap4 39.9 cm\S\2 LVLd ap4 9.0 cm EDV(MOD-sp4) 146.0 ml LVAs ap4 23.9 cm\S\2 LVLs ap4 7.1 cm ESV(MOD-sp4) 65.1 ml EF(MOD-sp4) 55.4 % LVAd ap2 36.8 cm\S\2 LVLd ap2 8.9 cm EDV(MOD-sp2) 126.0 ml LVAs ap2 21.7 cm\S\2 LVLs ap2 7.2 cm ESV(MOD-sp2) 51.5 ml EF(MOD-sp2) 59.1 % SV(MOD-sp4) 80.9 ml SI(MOD-sp4) 38.4 ml/m\S\2 SV(MOD-sp2) 74.5 ml SI(MOD-sp2) 35.3 ml/m\S\2 Doppler Measurements and Calculations MV E max leeroy 96.0 cm/sec MV A max leeroy 50.0 cm/sec MV E/A 1.9 MV dec time 0.14 sec Ao V2 max 99.0 cm/sec Ao max PG 3.9 mmHg Ao max PG (full) 1.1 mmHg MODESTA(V,A) 2.9 cm\S\2 MODESTA(V,D) 2.9 cm\S\2 LV V1 max PG 2.8 mmHg LV V1 mean PG 1.5 mmHg LV V1 max 83.9 cm/sec LV V1 mean 57.1 cm/sec LV V1 VTI 18.1 cm SV(LVOT) 62.0 ml SI(LVOT) 29.4 ml/m\S\2 PA V2 max 91.1 cm/sec PA max PG 3.3 mmHg
[2016-09-21 08:06] LABS: THYROID STIMULATING HORMONE 1.94 uIu/ml (0.300-4.500)
[2016-09-21] MEDS: CEFTRIAXONE SOD INJ 1 GM in DEXTROSE 5% ADD-VANTAGE 50ML 50 ML IV SCH (08:56)
--- NOTE | 2016-09-21 09:05 | Pharmacy Progress Note ---
Pharmacy Abx Initial Consult Date of Service Sep 21, 2016. Pharmacy Dosing Scope Date of Consult: 09/21/16 Consultation requested by: Dr. Fisher Pharmacy is consulted to initiate Vancomycin IV therapy, order appropriate labs and adjust drug dose/frequency. Subjective The patient is a 36 year old male admitted on Sep 21, 2016 at 07:33 for fever x 3 days, NVD, dizziness, hypotension and chest pain. He did require fluid resuscitation in the ER however despite this he remained hypotensive and required pressor/inotropic support. He did have an elevated troponin, CRP and procalcitonin. At this time broad-spectrum abx have been added to cover the possibility of endocarditis, however viral myocarditis is highly suspected. Lower on the differential is a possibility of intraabd infxn given h/o NVD and abd pain. Objective Height (Feet): 5 Height (Inches): 11.00 Weight (Kilograms): 91.000 Vital Signs (Past 12Hrs) Vital Signs Past 12 Hours Date Time Temp Pulse Resp B/P (MAP) Pulse Ox O2 Delivery O2 Flow Rate FiO2 09/21/16 08:34 37.0 71 16 133/76 (95) 100 Nasal Cannula 2.0 09/21/16 07:16 104/73 09/21/16 07:15 70 21 97 09/21/16 07:11 102/74 09/21/16 07:06 103/70 09/21/16 07:01 104/74 09/21/16 07:00 70 20 96 09/21/16 06:56 106/73 09/21/16 06:55 97 Nasal Cannula 2.0 09/21/16 06:51 97/68 09/21/16 06:46 97/75 09/21/16 06:45 73 20 97/75 98 09/21/16 06:45 75 25 96 09/21/16 06:40 76 20 105/72 97 09/21/16 06:35 75 20 101/73 96 09/21/16 06:30 76 20 111/72 97 09/21/16 06:25 76 22 102/71 97 09/21/16 06:20 78 20 101/76 97 09/21/16 06:15 73 20 105/75 97 09/21/16 06:10 74 16 100/71 97 09/21/16 06:05 75 20 99/73 99 Nasal Cannula 2.0 09/21/16 06:00 72 20 102/73 99 09/21/16 05:54 72 20 92/67 97 Nasal Cannula 2.0 09/21/16 05:45 77 20 96/64 97 09/21/16 05:30 75 16 80/61 97 Nasal Cannula 2.0 09/21/16 05:19 67 16 82/61 95 Nasal Cannula 2.0 09/21/16 05:05 Nasal Cannula 2.0 09/21/16 04:54 68 20 96/66 96 Room Air 09/21/16 04:30 64 16 91/71 97 Room Air 09/21/16 03:45 62 16 90/69 97 09/21/16 03:35 61 20 89/66 100 Room Air 09/21/16 03:25 64 09/21/16 03:23 36.7 60 18 89/64 97 Room Air 09/21/16 03:13 18 79/55 Room Air Lab Results (24Hrs) Laboratory Tests (24 Hours) Test 09/21/16 03:00 C-Reactive Protein 10.00 mg/dl (0-0.29) H Erythrocyte Sedimentation Rate 47 mm/hr (0-14) H White Blood Count 14.27 K/uL (4.8-10.8) H Red Blood Count 4.65 M/uL (4.7-6.1) L Hemoglobin 13.7 g/dL (14.0-18.0) L Hematocrit 41.4 % (42-52) L Mean Corpuscular Volume 89.0 fL (80-100) Mean Corpuscular Hemoglobin 29.5 pg (25-34) Mean Corpuscular Hemoglobin Concent 33.1 g/dl (32-36) Platelet Count 145 K/uL (130-400) Mean Platelet Volume 10.6 fL (7.4-10.4) H Neutrophils (%) (Auto) 74.8 % Lymphocytes (%) (Auto) 12.0 % Monocytes (%) (Auto) 12.6 % Eosinophils (%) (Auto) 0.2 % Basophils (%) (Auto) 0.1 % Neutrophils # (Auto) 10.67 K/uL (1.4-6.5) H Lymphocytes # (Auto) 1.71 K/uL (1.2-3.4) Monocytes # (Auto) 1.80 K/uL (0.11-0.59) H Eosinophils # (Auto) 0.03 K/uL (0-0.5) Basophils # (Auto) 0.02 K/uL (0-0.2) Procalcitonin 0.53 ng/ml (0-0.5) H Micro Results Date/Time Source Procedure Growth Status 09/21/16 03:50 Blood Blood Culture Pending Received 09/21/16 03:30 Blood Blood Culture Pending Received Risk Factors for Resistance * No risk factors identified Assessment & Plan Assessment * 36 year old male admitted today w/ c/o fever, NVD, abd pain, dizziness, CP and SOB * Found to be hypotensive in ER, given IVF's but also required pressor/ inotropic support. * Possible viral myocarditis, serologies ordered. However possibility of endocarditis also entertained and pt started on Rocephin + Vancomycin. Blood cxs have been ordered. No convincing evidence of endocarditis on echo per data technical lead consult however. Procalcitonin was elevated however. * Patient appears to have WANDER, current SCr 1.6, however baseline SCr unknown - however was 1.3 in Apr 2014. Given reported h/o HTN and hypotension on presentation WANDER likely. Pt's BP improved on Dobutamine and IVF's. Would estimate eCrCl ~70-80cc/hr, but will need to monitor BP, UO and SCr/BUN closely. Plan Vancomycin IV * Loading dose: 2300 mg (~25 mg/kg) * Maintenance dose: 1350 mg IV (~15 mg/kg) every 12 hours * Goal trough level for endocarditis : 15 to 20 mcg/mL * No trough level has been ordered at this time as therapy is empiric x 48 hrs. If therapy is to continue beyond 48 hrs a trough will be ordered, ideally with the 4th dose. * P'kinetic estimates: half-life ~11 hrs; Vd 0.7L/kg; Álvaro 0.065 hr-1 Pharmacy will continue to follow and will adjust dose/frequency as necessary. Thank you.
[2016-09-21 09:56] LABS: LYME DISEASE AB IGG NEG (NEG); LYME DISEASE AB IGM NEG (NEG)
--- NOTE | 2016-09-21 10:04 | Procedure Note ---
Procedure Note Procedure Date Sep 21, 2016. Central Line Procedure time out: side/site verified, patient ID confirmed, sterile procedure used Consent obtained: written Time of procedure: 10:00 Performed by: attending Indications: central drug admin. Prep: chlorhexadine prep, sterile drape, sterile procedures used Anesthesia: local injection, lidocaine 1% without epi Volume anesthetic (ml's): 3 Central line lumen: triple Central line location: internal jugular (R) Additional details: percutaneous placement, ultrasound guidance, Selinger technique used, line sutured, good blood return CXR: other (pending) Complications: none Patient tolerated procedure: well Post-procedure vital signs: reviewed and stable Comments: Critical Care Medicine Point of Care Bedside Ultrasound Procedure: Procedural Ultrasound Procedure Date: 09/21/2016 Indication: Right internal jugular central venous catheter, central drug administration Attending: Vasquez Walsh DO Artery AND Vein visualized: Yes Compressible Vein: Yes Guidewire or Short Catheter seen in vein prior to dilation: Yes Line confirmed in Vein with ultrasound: Yes Lung Sliding on side of attempt (if applicable): Not completed If no lung sliding or not obtained has CXR been ordered: Yes Impression: Successful placement of right internal jugular central venous catheter Plan: Review chest x-ray for position and rule out pneumothorax Images obtained are saved for permanent record
--- NOTE | 2016-09-21 10:26 | DIAGNOSTIC IMAGING REPORT ---
SINGLE VIEW CHEST CLINICAL HISTORY: Central venous catheter placement. FINDINGS: An AP, portable, upright chest radiograph is compared to study performed are the same day 09/21/2016. Correlation is made with chest CT dated 05/07/2014. The examination is degraded by portable technique and patient rotation. A right internal jugular central venous catheter has been placed. The tip of the catheter projects over the SVC. The heart is mildly enlarged. There is mild prominence the central pulmonary vessels. Trace pleural fluid is suggested along the minor fissure. The lungs and pleural spaces are otherwise clear. No pneumothorax is seen. The bony thorax is grossly intact. IMPRESSION: 1. A right internal jugular central venous catheter has been placed. No pneumothorax is seen post procedure. 2. Mild cardiac enlargement. There is prominence of the central pulmonary vasculature. Correlate clinically for evidence of mild congestive failure. Electronically signed by: Sebas Gauthier M.D. 09/21/2016 10:25 AM Dictated Date/Time: 09/21/2016 10:23 AM
[2016-09-21] MEDS: PANTOprazole INJ 40 MG in SYRINGE 0 ML IV SCH (11:23)
[2016-09-21] MEDS: COLCHICINE 0.6 MG TAB PO SCH ×2 (11:35→21:13)
--- NOTE | 2016-09-21 12:34 | Progress Note ---
Progress Note Date of Service Sep 21, 2016. (Jose Arita MD) Progress Note Patient with global hypokinesis and elevated troponins. Likely viral infection of heart muscle and pericardial sac surrounding heart. Patient seen at the bedside. Is feeling much better. No longer having any chest pain, fevers or chills. Spoke to patient about diagnosis and current plan. Examined patient at the bedside RRR, no murmurs, JVD not raised, no peripheral edema, normal cap refill, cold peripheries Lung clear Abdomen soft and non tender with good bowel sounds Will continue to follow the patient as he remains in the ICU - Jose Arita PGY1 (Jose Arita MD) Resident Physician Supervision Note: I was present with PGY2 Dr. Jose Arita during the history and exam. I discussed the case with the resident and agree with the findings and plan as documented in the note. Any exceptions or clarifications are listed here: none. Pt's BP improved throughout the day. Denied any complaints during our bedside rounds. NO dyspnea at rest or orthopnea. Had right CVC placed. VSS gen - looks ill but nontoxic neck - right IJ CVC clean; no JVD heart - RRR, s1, s2, no murmur lungs - CTA b/l abd - soft, no HSM, NT ext - no edema A/P: Suspected acute pericarditis/myocarditis, likely viral in etiology. Cardiogenic shock/possible septic shock 2nd to the above - improved s/p fluids and inotropic support. Acute kidney injury 2nd to the above. +troponin 2nd to pericarditis/myocarditis. Agree with Rx of pericarditis w/ colchicine. Defer other management to critical care/cardiology. Documented By: Shabbir Jones MD (Shabbir Jones MD)
[2016-09-21] MEDS: VANCOMYCIN INJ 1,350 MG in SODIUM CHLORIDE 0.9% 250ML 250 ML IV SCH (16:20)
[2016-09-21] MEDS ORDERED: ONDANSETRON INJ 2 MG/ML 2 ML VIAL ONE (16:39)
[2016-09-21] MEDS ORDERED: ONDANSETRON INJ 2 MG/ML 2 ML VIAL IV PRN (16:45)
[2016-09-21] MEDS: ACETAMINOPHEN 325 MG TAB PO PRN ×2 (17:05→21:13)
[2016-09-21] MEDS ORDERED: IBUPROFEN 200 MG TAB PO PRN (19:30)
[2016-09-21 20:01] LABS: URINE APPEARANCE CLOUDY (CLEAR); URINE BILIRUBIN NEG (NEG); URINE COLOR YELLOW; URINE EPITHELIAL CELL AUTO 20-30 /lpf (0-5); URINE NITRITE NEG (NEG); URINE PH 5.5 (4.5-7.5); URINE SPECIFIC GRAVITY 1.024 (1.000-1.030); UROBILINOGEN NEG (NEG); ZZUR CULT IF INDIC CLEAN CATCH NO
[2016-09-21 20:03] LABS: MANUAL MICROSCOPIC REQUIRED? NO; REVIEW REQ? NO
[2016-09-21 20:29] LABS: BENZODIAZEPINE, URINE NEG (NEG); COCAINE,URINE NEG (NEG); PHENCYCLIDINE, URINE NEG (NEG)
[2016-09-22] VITALS (37 sets, daily range): BP systolic 92–116; BP diastolic 64–78; PULSE 62–133; TEMP 36.4–37.7; O2SAT 92–98
[2016-09-22] MEDS: ACETAMINOPHEN 325 MG TAB PO PRN ×2 (05:53→17:57)
[2016-09-22] MEDS: VANCOMYCIN INJ 1,350 MG in SODIUM CHLORIDE 0.9% 250ML 250 ML IV SCH (05:53)
[2016-09-22 06:03] LABS: BASO % 0.2 %; BASO ABS # 0.02 K/uL (0-0.2); COMPLETE YES; EOS % 0.2 %; HEMATOCRIT 39.9 % (42-52); IG% 0.3 %; LYMPH % 12.7 %; LYMPH ABS # 1.39 K/uL (1.2-3.4); MEAN CELL VOLUME 90.3 fL (80-100); MEAN CORPUSCULAR HEMOGLOBIN 30.1 pg (25-34); MEAN CORPUSCULAR HGB CONC 33.3 g/dl (32-36); MEAN PLATELET VOLUME 11.7 fL (7.4-10.4); MONO % 9.1 %; NEUT % 77.5 %; PLATELET COUNT 126 K/uL (130-400); RED BLOOD COUNT 4.42 M/uL (4.7-6.1); WHITE BLOOD COUNT 10.96 K/uL (4.8-10.8)
[2016-09-22] MEDS ORDERED: FUROSEMIDE 40 MG/4 ML VIAL ONE (06:25)
[2016-09-22] MEDS ORDERED: FUROSEMIDE INJ 20 MG in SYRINGE 0 ML IV ONE (06:30)
[2016-09-22 06:32] LABS: ALT/SGPT 23 U/L (12-78); BLOOD UREA NITROGEN 10 mg/dl (7-18); BUN/CREATININE RATIO 7.9 (10-20); CALCIUM 8.2 mg/dl (8.5-10.1); CARBON DIOXIDE 24 mmol/L (21-32); CHLORIDE 109 mmol/L (98-107); GLUCOSE 103 mg/dl (70-99); MAGNESIUM 1.9 mg/dl (1.8-2.4); POTASSIUM 3.3 mmol/L (3.5-5.1); SODIUM 143 mmol/L (136-145)
[2016-09-22 06:45] LABS: ALKALINE PHOSPHATASE 67 U/L (45-117); AST/SGOT 40 U/L (15-37); PHOSPHORUS 1.6 mg/dl (2.5-4.9)
[2016-09-22] MEDS ORDERED: SODIUM PHOSPHATE 3 MMOL/1 ML INFUSION IV STA (06:50)
[2016-09-22] MEDS ORDERED: POTASSIUM CHLR 20 MEQ / WTR 40 MEQ in PREMIXED WATER 100 ML IV SCH (07:00)
[2016-09-22] MEDS ORDERED: SODIUM PHOSPHATE INJ 21 MMOL in SODIUM CHLORIDE 0.9% 500ML 500 ML IV ONE (07:15)
--- NOTE | 2016-09-22 07:31 | DIAGNOSTIC IMAGING REPORT ---
CHEST ONE VIEW PORTABLE CLINICAL HISTORY: Desaturations with decreased heart function COMPARISON STUDY: Chest radiograph September 21, 2016. FINDINGS: A right internal jugular central line remains in place. There is no pneumothorax or pleural effusion. Cardiomediastinal silhouette is stable. Mild interstitial thickening has slightly progressed. Is right infrahilar opacity. IMPRESSION: 1. Slight progression of interstitial thickening which favors pulmonary edema. 2. Right infrahilar opacity which may reflect atelectasis or consolidation. Radiographic follow up is recommended. Electronically signed by: Scar Lechuga M.D. 09/22/2016 7:29 AM Dictated Date/Time: 09/22/2016 7:28 AM
[2016-09-22] MEDS: POTASSIUM CHLR 10MEQ / WTR IV SCH ×4 (08:15→10:10)
--- NOTE | 2016-09-22 08:55 | Critical Care Progress Note ---
Critical Care Progress Note Date of Service Sep 22, 2016. ICU Day ICU Day Number: [address] Huddleston Subjective Remains volume sensitive. Continues to have some chest pain. No rash. No target joint aches or pains. His mentation is normal. Meds reviewed today. Labs reviewed and additional evaluation as follows. He is anxious. Lytes replacement in progress. Objective LOC--awake and alert--appropriate HEENT--sclera pale Pulmonary--exchange is adequate--no wheezing Cardio--faint rub suggested. No JVD seen. Perfusion is ok GI--soft and functional --no issues suggested Musculoskeletal--no erythema/effusion/changes Neuro--intact. No focal changes. Psych--anxious Derm--no rash observed. Current SOFA Score SOFA Score Response (Comments) Value PaO2/FiO2 (mmHg) < 300 2 SaO2 / FIO2 221 - 301 1 Platelets (x10) < 150 1 Bilirubin (mg/dL) < 1.2 0 Edvin Coma Score 15 0 Level of Hypotension No Hypotension 0 Creatinine (mg/dL) 1.2 - 1.9 1 Total 5 Previous SOFA Scores 5 Assessment & Plan (1) Vomiting The vomiting has resolved at this time. (2) Fever Febrile illness with hypotension and myocarditis--adding evaluation for Anaplasmosis and West Nile. Ehrlichiosis labs also added. Spoke with ID and Doxy started. Will require some additional IV fluids. (3) WANDER (acute kidney injury) Still requires some volume. Will track this closely. Off the dobutamine for now. (4) Hypotension (5) Leukocytosis (6) Elevated troponin (7) Hyperglycemia no new developments (8) Chest pain symptomatic treatment in place. The etiology of his illness remains unknown but the hike up [facility] prior to the development of high fever with the presenting signs and symptoms make tick borne infection a concern. Adding doxy and monitoring for volume important. Will track with cardiology and ID. Venous doppler of the LE for completeness. He remains critically ill. Consults & Procedures Consultants: id Procedures: none Data Medications: Current Inpatient Medications Medications (Trade) Dose Ordered Sig/Neymar Route Start Time Stop Time Status Last Admin Dose Admin Ioversol (Optiray 320) 125 ml UD PRN IV 09/21/16 04:15 09/25/16 04:14 Acetaminophen (Tylenol Tab) 650 mg Q4H PRN PO 09/21/16 06:15 10/21/16 06:14 09/22/16 05:53 650 MG Lorazepam (Ativan Tab) 0.5 mg Q4H PRN PO 09/21/16 06:15 10/21/16 06:14 Pantoprazole Sodium 40 mg/ Syringe 10 ml @ 5 mls/min DAILY@1100 IV 09/21/16 11:00 10/21/16 10:59 09/21/16 11:23 5 MLS/MIN Morphine Sulfate (MoRPHine SULFATE INJ) 4 mg Q2H PRN IV 09/21/16 06:15 10/05/16 06:14 Vancomycin HCl 1350 mg/Sodium Chloride 277 ml @ 125 mls/hr Q12H IV 09/21/16 18:00 09/23/16 17:59 09/22/16 05:53 125 MLS/HR Ceftriaxone Sodium 1 gm/ Dextrose 50 ml @ 100 mls/hr Q24H IV 09/21/16 09:00 09/23/16 06:44 09/21/16 08:56 100 MLS/HR Vancomycin HCl (Consult) 1 ea UD PRN N/A 09/21/16 07:00 10/21/16 06:59 Colchicine (Colchicine Tab) 0.6 mg QAM PO 09/22/16 09:00 10/22/16 08:59 Ondansetron HCl (Zofran Inj) 4 mg Q6H PRN IV 09/21/16 16:45 10/21/16 16:44 Heparin Sodium (Porcine) (Heparin 10 Unit/ ml 5 ml Flush) 5 ml PRN PRN FLUSH 09/22/16 00:30 10/22/16 00:29 Sodium Phosphate 21 mmol/Sodium Chloride 507 ml @ 78 mls/hr TODAY@0715 ONCE IV 09/22/16 07:15 09/22/16 13:44 09/22/16 08:16 78 MLS/HR Potassium Chloride 10 meq/ Prmx 100 ml @ 100 mls/hr Q1H IV 09/22/16 07:00 09/22/16 10:59 09/22/16 08:15 100 MLS/HR Sodium Chloride 1,000 ml @ 999 mls/hr Q1H1M IV 09/22/16 09:00 10/22/16 08:59 Doxycycline Hyclate 100 mg/ Dextrose 110 ml @ 50 mls/hr Q12 STAT IV 09/22/16 08:39 09/22/16 10:50 UNV Vital Signs: Date Time Temp Pulse Resp B/P (MAP) Pulse Ox O2 Delivery O2 Flow Rate FiO2 09/22/16 04:01 37.1 68 14 111/75 (87) 94 Nasal Cannula 2.0 09/22/16 04:00 Nasal Cannula 2.0 09/22/16 03:01 67 16 111/76 (88) 96 Nasal Cannula 2.0 09/22/16 02:01 66 16 112/72 (85) 95 Nasal Cannula 2.0 09/22/16 01:01 62 18 116/76 (89) 96 Nasal Cannula 2.0 09/22/16 00:01 36.4 63 18 97/64 (75) 95 Nasal Cannula 2.0 09/22/16 00:01 Nasal Cannula 2.0 09/21/16 23:01 63 16 103/66 (78) 94 Nasal Cannula 2.0 09/21/16 22:01 69 20 106/68 (81) 95 Nasal Cannula 2.0 09/21/16 21:01 69 18 117/74 (88) 95 Nasal Cannula 2.0 09/21/16 20:01 37.8 75 20 107/64 (78) 93 Nasal Cannula 2.0 09/21/16 20:00 Nasal Cannula 2.0 09/21/16 18:01 90 104/67 (79) 95 Room Air 09/21/16 18:00 87 95 09/21/16 17:01 91 119/79 (92) 98 09/21/16 17:00 90 97 09/21/16 16:15 Room Air 09/21/16 16:01 78 126/73 (90) 96 09/21/16 16:01 37.7 78 126/73 (90) 96 Room Air 09/21/16 16:00 75 96 09/21/16 16:00 75 96 09/21/16 15:01 80 119/73 (88) 94 09/21/16 15:00 73 94 09/21/16 14:01 79 124/76 (92) 96 Room Air 09/21/16 14:00 81 95 09/21/16 13:01 83 115/73 (87) 96 09/21/16 13:00 79 97 7/9/17 12:01 89 118/77 (91) 97 09/21/16 12:00 88 96 09/21/16 11:45 100 Nasal Cannula 2.0 09/21/16 11:01 36.7 69 16 115/78 (90) 92 Nasal Cannula 2.0 09/21/16 11:00 72 18 95 09/21/16 10:01 76 14 113/86 (95) 96 Nasal Cannula 2.0 09/21/16 10:00 74 14 96 09/21/16 09:50 83 16 127/87 (100) 100 09/21/16 09:41 78 18 114/84 (94) 100 09/21/16 09:38 77 14 111/85 (94) 99 09/21/16 09:01 77 16 109/74 (86) 97 09/21/16 09:00 74 18 100 Laboratory Results: Last 24 Hours Test 09/21/16 14:18 09/21/16 19:30 09/21/16 21:15 09/22/16 00:00 Troponin I 12.600 ng/ml Urine Color YELLOW Urine Appearance CLOUDY Urine pH 5.5 Urine Specific [place] 1.024 Urine Protein TRACE Urine Glucose (UA) NEG Urine Ketones NEG Urine Occult Blood NEG Urine Nitrite NEG Urine Bilirubin NEG Urine Urobilinogen NEG Urine Leukocyte Esterase NEG Urine WBC (Auto) 1-5 /hpf Urine RBC (Auto) 0-4 /hpf Urine Hyaline Casts (Auto) 1-5 /lpf Urine Epithelial Cells (Auto) 20-30 /lpf Urine Bacteria (Auto) NEG Urine Opiates Screen NEG Urine Methadone, Qualitative NEG Urine Barbiturates NEG Urine Phencyclidine (PCP) Level NEG Ur Amphetamine/Methamphetamine NEG MDMA (Ecstasy) Screen NEG Urine Benzodiazepines Screen NEG Urine Cocaine Metabolite NEG Urine Marijuana (THC) NEG Bedside Glucose 108 mg/dl Test 09/22/16 01:26 09/22/16 05:24 09/22/16 08:25 Troponin I 6.040 ng/ml White Blood Count 10.96 K/uL Red Blood Count 4.42 M/uL Hemoglobin 13.3 g/dL Hematocrit 39.9 % Mean Corpuscular Volume 90.3 fL Mean Corpuscular Hemoglobin 30.1 pg Mean Corpuscular Hemoglobin Concent 33.3 g/dl Platelet Count 126 K/uL Mean Platelet Volume 11.7 fL Neutrophils (%) (Auto) 77.5 % Lymphocytes (%) (Auto) 12.7 % Monocytes (%) (Auto) 9.1 % Eosinophils (%) (Auto) 0.2 % Basophils (%) (Auto) 0.2 % Neutrophils # (Auto) 8.50 K/uL Lymphocytes # (Auto) 1.39 K/uL Monocytes # (Auto) 1.00 K/uL Eosinophils # (Auto) 0.02 K/uL Basophils # (Auto) 0.02 K/uL RDW Standard Deviation 45.0 fL RDW Coefficient of Variation 13.4 % Immature Granulocyte % (Auto) 0.3 % Immature Granulocyte # (Auto) 0.03 K/uL Sodium Level 143 mmol/L Potassium Level 3.3 mmol/L Chloride Level 109 mmol/L Carbon Dioxide Level 24 mmol/L Anion Gap 10.0 mmol/L Blood Urea Nitrogen 10 mg/dl Creatinine 1.20 mg/dl Est Creatinine Clear Calc Drug Dose 98.1 ml/min Estimated GFR () 89.0 Estimated GFR (Non- 76.8 BUN/Creatinine Ratio 7.9 Random Glucose 103 mg/dl Calcium Level 8.2 mg/dl Phosphorus Level 1.6 mg/dl Magnesium Level 1.9 mg/dl Total Bilirubin 0.5 mg/dl Direct Bilirubin < 0.1 mg/dl Aspartate Amino Transf (AST/SGOT) 40 U/L Alanine Aminotransferase (ALT/SGPT) 23 U/L Alkaline Phosphatase 67 U/L Total Protein 6.3 gm/dl Albumin 2.5 gm/dl
--- NOTE | 2016-09-22 08:56 | Cardiology Follow-Up ---
Subjective General Date of Service: Sep 22, 2016. Pt evaluation today including: conversation w/ patient, chart review, lab review, review of studies, conversation w/ networks software consultant History of Present Illness The patient is a 36 year old male Allergies Coded Allergies: No Known Allergies (Unverified , 09/20/16) Social History Smoking Status: Never Smoker Hx Tobacco Use In Past Year?: No Hx Alcohol Use - Type And Amou: No Hx Substance Use - Type And Am: No Problem List Medical Problems: (1) Acute kidney injury Status: Acute (2) Fever Status: Acute (3) LLQ abdominal pain Status: Acute (4) Myocarditis Status: Acute Review of Systems Respiratory: No cough, No dyspnea at rest Cardiac: + chest pain, + palpitations (when had sinus Tach), No edema Additional ROS Details: still with low grade fevers and looks ill Physical Exam Vital Signs Last Vital Signs Documentation Date Time Temp Pulse Resp B/P (MAP) Pulse Ox O2 Delivery O2 Flow Rate FiO2 09/22/16 04:01 37.1 68 14 111/75 (87) 94 Nasal Cannula 2.0 Physical Exam Constitutional: General Apperance: well-developed Level of Distress: mild distress, acutely ill Psychiatric: Mental Status: active & alert, normal affect Lungs: Respiratory effort: no dyspnea Auscultation: breath sounds normal, no wheezing, no rales/crackles, no rhonchi Cardiovascular: Heart Auscultation: RRR, no murmurs, no gallops, tachycardia, rub (new this am) Abdomen: Bowel Sounds: diminished Inspection & Palpation: soft, non-distended Extremities: no edema, pertinent finding (ext are cool to touch) Assessment and Plan Assessment and Plan 1. Likely viral myopericarditis with associated fevers and chills, chest pain, mild global hypokinesis (on admission) and mildly elevated troponin and hypotension (resolved) 2. Acute renal failure --improving 3. Elevated lactic acid level--on admission 4. Elevated sedimentation rate and CRP 5. Sinus Tach this morning after diuretics and getting out of bed 6. Pericarditis with pericardial effusion on Colchicine .06 mg daily His EKG and echocardiogram were reviewed with the intensivists and ER physicians at the bedside. His EKG is unchanged from admission. troponin has trended down Bedside echo now with trace to small effusion. + rub on exam this am LV function normal by Biplane Crowley's LVEF 55% and unchanged from yesterday RV slightly dilated with normal Function IVC normal in size with normal collapse (RA pressure 3 mm/hg) There is nothing on his echocardiogram at this point to suggest endocarditis. Blood cultures (negative so far) and viral cultures have been ordered. Off Dobutamine at this point. Still looks acutely ill. Additional culture for West Nile, ehrlichiosis, anaplasmosis sent. Plan ID consult Looks better with IVF this am (RA pressure low by echo)--HR coming down and BP improving All this was discussed with the wagon driller service. Laboratory Results Last 24 Hours Test 09/21/16 14:18 09/21/16 19:30 09/21/16 21:15 09/22/16 00:00 Troponin I 12.600 ng/ml Urine Color YELLOW Urine Appearance CLOUDY Urine pH 5.5 Urine Specific [place] 1.024 Urine Protein TRACE Urine Glucose (UA) NEG Urine Ketones NEG Urine Occult Blood NEG Urine Nitrite NEG Urine Bilirubin NEG Urine Urobilinogen NEG Urine Leukocyte Esterase NEG Urine WBC (Auto) 1-5 /hpf Urine RBC (Auto) 0-4 /hpf Urine Hyaline Casts (Auto) 1-5 /lpf Urine Epithelial Cells (Auto) 20-30 /lpf Urine Bacteria (Auto) NEG Urine Opiates Screen NEG Urine Methadone, Qualitative NEG Urine Barbiturates NEG Urine Phencyclidine (PCP) Level NEG Ur Amphetamine/Methamphetamine NEG MDMA (Ecstasy) Screen NEG Urine Benzodiazepines Screen NEG Urine Cocaine Metabolite NEG Urine Marijuana (THC) NEG Bedside Glucose 108 mg/dl Test 09/22/16 01:26 09/22/16 05:24 09/22/16 08:25 Troponin I 6.040 ng/ml White Blood Count 10.96 K/uL Red Blood Count 4.42 M/uL Hemoglobin 13.3 g/dL Hematocrit 39.9 % Mean Corpuscular Volume 90.3 fL Mean Corpuscular Hemoglobin 30.1 pg Mean Corpuscular Hemoglobin Concent 33.3 g/dl Platelet Count 126 K/uL Mean Platelet Volume 11.7 fL Neutrophils (%) (Auto) 77.5 % Lymphocytes (%) (Auto) 12.7 % Monocytes (%) (Auto) 9.1 % Eosinophils (%) (Auto) 0.2 % Basophils (%) (Auto) 0.2 % Neutrophils # (Auto) 8.50 K/uL Lymphocytes # (Auto) 1.39 K/uL Monocytes # (Auto) 1.00 K/uL Eosinophils # (Auto) 0.02 K/uL Basophils # (Auto) 0.02 K/uL RDW Standard Deviation 45.0 fL RDW Coefficient of Variation 13.4 % Immature Granulocyte % (Auto) 0.3 % Immature Granulocyte # (Auto) 0.03 K/uL Sodium Level 143 mmol/L Potassium Level 3.3 mmol/L Chloride Level 109 mmol/L Carbon Dioxide Level 24 mmol/L Anion Gap 10.0 mmol/L Blood Urea Nitrogen 10 mg/dl Creatinine 1.20 mg/dl Est Creatinine Clear Calc Drug Dose 98.1 ml/min Estimated GFR () 89.0 Estimated GFR (Non- 76.8 BUN/Creatinine Ratio 7.9 Random Glucose 103 mg/dl Calcium Level 8.2 mg/dl Phosphorus Level 1.6 mg/dl Magnesium Level 1.9 mg/dl Total Bilirubin 0.5 mg/dl Direct Bilirubin < 0.1 mg/dl Aspartate Amino Transf (AST/SGOT) 40 U/L Alanine Aminotransferase (ALT/SGPT) 23 U/L Alkaline Phosphatase 67 U/L Total Protein 6.3 gm/dl Albumin 2.5 gm/dl
[2016-09-22] MEDS: CEFTRIAXONE SOD INJ 1 GM in DEXTROSE 5% ADD-VANTAGE 50ML 50 ML IV SCH (08:57)
[2016-09-22] MEDS: PANTOprazole INJ 40 MG in SYRINGE 0 ML IV SCH (08:57)
[2016-09-22] MEDS: COLCHICINE 0.6 MG TAB PO SCH (08:57)
[2016-09-22] MEDS: SODIUM CHLORIDE 0.9% 1000ML 1,000 ML IV SCH ×2 (08:58→10:01)
--- NOTE | 2016-09-22 09:29 | DIAGNOSTIC IMAGING REPORT ---
VENOUS DOPPLER LWR EXT BILA HISTORY: 36-year-old male presents with acute shock. TECHNIQUE: Multiple real-time sonographic images of the deep venous structures of the lower extremities were obtained assessing dhillon scale, color Doppler flow and spectral waveform appearance. FINDINGS: RIGHT LOWER EXTREMITY: The common femoral, profunda femoral, femoral, popliteal, and greater saphenous veins demonstrate complete compressibility with external transducer pressure and spontaneous and phasic spectral and color flow. The posterior tibial and peroneal veins demonstrate complete compressibility with external transducer pressure. LEFT LOWER EXTREMITY: The common femoral, profunda femoral, femoral, popliteal and greater saphenous veins demonstrated complete compressibility with external transducer pressure and spontaneous and phasic spectral and color flow.The posterior tibial and peroneal veins demonstrate complete compressibility with external transducer pressure. IMPRESSION: No sonographic evidence of deep venous thrombosis. Electronically signed by: Db Garcia 09/22/2016 9:28 AM Dictated Date/Time: 09/22/2016 9:26 AM
--- NOTE | 2016-09-22 09:34 | Medical Consult ---
Consultation Date of Consultation: Sep 22, 2016. Attending Physician: Shabbir Jones MD Reason for Consultation: Myocarditis History of Present Illness 36-year-old male in prior good health was well until last week when he noted the onset fever, chills, diffuse myalgias and arthralgias, and intense chest pain, rated at 10 in intensity. Symptoms worsened significantly in patient ultimately came to the emergency room for further management. He was found to have elevation of cardiac enzymes with EKG changes consistent with possible myopericarditis. Echocardiogram shows mild diffuse hypokinesia. Patient was started empirically on IV ceftriaxone. Has had tick exposure, Lyme serology is negative. Blood cultures are no growth to date. Mild decrease in platelet count noted. Liver enzymes unremarkable. Otherwise patient has no significant travel or exposure history. Currently without chest pain, and has been afebrile since admission. Past Medical/Surgical History Medical Problems: (1) Acute kidney injury Status: Acute (2) Fever Status: Acute (3) LLQ abdominal pain Status: Acute (4) Myocarditis Status: Acute Medical Problems: (1) WANDER (acute kidney injury) (2) Chest pain (3) Elevated troponin (4) Fever (5) Hyperglycemia (6) Hypotension (7) Leukocytosis (8) No Known Active Medical Problems (9) Shock (10) Vomiting Family History Noncontributory Social History Smoking Status: Never Smoker Smokeless Tobacco Use: No Alcohol Use: none Drug Use: none Marital Status: single Occupation Status: employed Allergies Coded Allergies: No Known Allergies (Unverified , 09/20/16) Current Inpatient Medications Current Inpatient Medications Medications (Trade) Dose Ordered Sig/Neymar Route Start Time Stop Time Status Last Admin Dose Admin Ioversol (Optiray 320) 125 ml UD PRN IV 09/21/16 04:15 09/25/16 04:14 Acetaminophen (Tylenol Tab) 650 mg Q4H PRN PO 09/21/16 06:15 10/21/16 06:14 09/22/16 05:53 650 MG Lorazepam (Ativan Tab) 0.5 mg Q4H PRN PO 09/21/16 06:15 10/21/16 06:14 Pantoprazole Sodium 40 mg/ Syringe 10 ml @ 5 mls/min DAILY@1100 IV 09/21/16 11:00 10/21/16 10:59 09/22/16 08:57 5 MLS/MIN Morphine Sulfate (MoRPHine SULFATE INJ) 4 mg Q2H PRN IV 09/21/16 06:15 10/05/16 06:14 Vancomycin HCl 1350 mg/Sodium Chloride 277 ml @ 125 mls/hr Q12H IV 09/21/16 18:00 09/23/16 17:59 09/22/16 05:53 125 MLS/HR Ceftriaxone Sodium 1 gm/ Dextrose 50 ml @ 100 mls/hr Q24H IV 09/21/16 09:00 09/23/16 06:44 09/22/16 08:57 100 MLS/HR Vancomycin HCl (Consult) 1 ea UD PRN N/A 09/21/16 07:00 10/21/16 06:59 Colchicine (Colchicine Tab) 0.6 mg QAM PO 09/22/16 09:00 10/22/16 08:59 09/22/16 08:57 0.6 MG Ondansetron HCl (Zofran Inj) 4 mg Q6H PRN IV 09/21/16 16:45 10/21/16 16:44 Heparin Sodium (Porcine) (Heparin 10 Unit/ ml 5 ml Flush) 5 ml PRN PRN FLUSH 09/22/16 00:30 10/22/16 00:29 Sodium Phosphate 21 mmol/Sodium Chloride 507 ml @ 78 mls/hr TODAY@0715 ONCE IV 09/22/16 07:15 09/22/16 13:44 09/22/16 08:16 78 MLS/HR Potassium Chloride 10 meq/ Prmx 100 ml @ 100 mls/hr Q1H IV 09/22/16 07:00 09/22/16 10:59 09/22/16 08:56 100 MLS/HR Sodium Chloride 1,000 ml @ 999 mls/hr Q1H1M IV 09/22/16 09:00 10/22/16 08:59 09/22/16 08:58 999 MLS/HR Doxycycline Hyclate 100 mg/ Dextrose 110 ml @ 50 mls/hr Q12 IV 09/22/16 09:00 09/24/16 08:59 Review of Systems Constitutional: + fever, + chills, + sweats, + weakness, + fatigue Eyes: No problem reported ENT: No problem reported Respiratory: + shortness of breath Cardiovascular: + chest pain, + palpitations Abdomen: + nausea, + diarrhea Musculoskeletal: + joint pain, + muscle pain Genitourinary - Male: No problem reported Neurologic: No problem reported Psychiatric: No problem reported Endocrine: + fatigue Hematologic / Lymphatic: No problem reported Integumentary: No problem reported Allergic / Immunologic: No problem reported Physical Exam Date Time Temp Pulse Resp B/P (MAP) Pulse Ox O2 Delivery O2 Flow Rate FiO2 09/22/16 04:01 37.1 68 14 111/75 (87) 94 Nasal Cannula 2.0 09/22/16 04:00 Nasal Cannula 2.0 09/22/16 03:01 67 16 111/76 (88) 96 Nasal Cannula 2.0 09/22/16 02:01 66 16 112/72 (85) 95 Nasal Cannula 2.0 09/22/16 01:01 62 18 116/76 (89) 96 Nasal Cannula 2.0 09/22/16 00:01 36.4 63 18 97/64 (75) 95 Nasal Cannula 2.0 09/22/16 00:01 Nasal Cannula 2.0 09/21/16 23:01 63 16 103/66 (78) 94 Nasal Cannula 2.0 09/21/16 22:01 69 20 106/68 (81) 95 Nasal Cannula 2.0 09/21/16 21:01 69 18 117/74 (88) 95 Nasal Cannula 2.0 09/21/16 20:01 37.8 75 20 107/64 (78) 93 Nasal Cannula 2.0 09/21/16 20:00 Nasal Cannula 2.0 09/21/16 18:01 90 104/67 (79) 95 Room Air 09/21/16 18:00 87 95 09/21/16 17:01 91 119/79 (92) 98 09/21/16 17:00 90 97 09/21/16 16:15 Room Air 09/21/16 16:01 78 126/73 (90) 96 09/21/16 16:01 37.7 78 126/73 (90) 96 Room Air 09/21/16 16:00 75 96 09/21/16 16:00 75 96 09/21/16 15:01 80 119/73 (88) 94 09/21/16 15:00 73 94 09/21/16 14:01 79 124/76 (92) 96 Room Air 09/21/16 14:00 81 95 09/21/16 13:01 83 115/73 (87) 96 09/21/16 13:00 79 97 09/21/16 12:01 89 118/77 (91) 97 09/21/16 12:00 88 96 09/21/16 11:45 100 Nasal Cannula 2.0 09/21/16 11:01 36.7 69 16 115/78 (90) 92 Nasal Cannula 2.0 09/21/16 11:00 72 18 95 09/21/16 10:01 76 14 113/86 (95) 96 Nasal Cannula 2.0 09/21/16 10:00 74 14 96 09/21/16 09:50 83 16 127/87 (100) 100 09/21/16 09:41 78 18 114/84 (94) 100 09/21/16 09:38 77 14 111/85 (94) 99 General Appearance: WD/WN, no apparent distress Head: normocephalic, atraumatic Eyes: normal inspection, EOMI, sclerae normal ENT: normal ENT inspection, hearing grossly normal, pharynx normal Neck: supple, no adenopathy, thyroid normal, trachea midline Respiratory/Chest: chest non-tender, lungs clear, normal breath sounds, no respiratory distress Cardiovascular: regular rate, rhythm, no gallop, no murmur Abdomen/GI: normal bowel sounds, non tender, soft, no organomegaly Back: normal inspection, no CVA tenderness Extremities/Musculoskelatal: no calf tenderness, normal capillary refill, non- tender Neurologic/Psych: alert, oriented x 3 Skin: normal color, warm/dry, no rash Lymphatic: no adenopathy Laboratory Results RUN DATE: 09/22/16 [facility] LAB PAGE 1 RUN TIME: 0720 Specimen Inquiry PATIENT: MARNIE [place] LOC: [facility] U # : [id number] AGE/SX: 36/M ROOM: E105 REG : 09/21/[address]: Shabbir Jones MD : 1980 BED: 1 DIS : STATUS: ADM IN TLOC: SPEC #: [id number] TOÑO: 09/21/16 STATUS: RES REQ #: [id number] RECD: 09/21/[address]: Ayana Ronquillo PA- C SOURCE: BLOOD ENTR: 09/21/[address] [facility] [address]: Jose Cotton M.D. SPDESC: No Doctor, Assigned ORDERED: BLOOD CULTURE Procedure Result Verified Site BLD CULT Preliminary 09/22/16-719 NO GROWTH TO DATE. Last 24 Hours Test 09/21/16 14:18 09/21/16 19:30 09/21/16 21:15 09/22/16 00:00 Troponin I 12.600 ng/ml Urine Color YELLOW Urine Appearance CLOUDY Urine pH 5.5 Urine Specific [place] 1.024 Urine Protein TRACE Urine Glucose (UA) NEG Urine Ketones NEG Urine Occult Blood NEG Urine Nitrite NEG Urine Bilirubin NEG Urine Urobilinogen NEG Urine Leukocyte Esterase NEG Urine WBC (Auto) 1-5 /hpf Urine RBC (Auto) 0-4 /hpf Urine Hyaline Casts (Auto) 1-5 /lpf Urine Epithelial Cells (Auto) 20-30 /lpf Urine Bacteria (Auto) NEG Urine Opiates Screen NEG Urine Methadone, Qualitative NEG Urine Barbiturates NEG Urine Phencyclidine (PCP) Level NEG Ur Amphetamine/Methamphetamine NEG MDMA (Ecstasy) Screen NEG Urine Benzodiazepines Screen NEG Urine Cocaine Metabolite NEG Urine Marijuana (THC) NEG Bedside Glucose 108 mg/dl Test 09/22/16 01:26 09/22/16 05:24 09/22/16 08:25 Troponin I 6.040 ng/ml White Blood Count 10.96 K/uL Red Blood Count 4.42 M/uL Hemoglobin 13.3 g/dL Hematocrit 39.9 % Mean Corpuscular Volume 90.3 fL Mean Corpuscular Hemoglobin 30.1 pg Mean Corpuscular Hemoglobin Concent 33.3 g/dl Platelet Count 126 K/uL Mean Platelet Volume 11.7 fL Neutrophils (%) (Auto) 77.5 % Lymphocytes (%) (Auto) 12.7 % Monocytes (%) (Auto) 9.1 % Eosinophils (%) (Auto) 0.2 % Basophils (%) (Auto) 0.2 % Neutrophils # (Auto) 8.50 K/uL Lymphocytes # (Auto) 1.39 K/uL Monocytes # (Auto) 1.00 K/uL Eosinophils # (Auto) 0.02 K/uL Basophils # (Auto) 0.02 K/uL RDW Standard Deviation 45.0 fL RDW Coefficient of Variation 13.4 % Immature Granulocyte % (Auto) 0.3 % Immature Granulocyte # (Auto) 0.03 K/uL Sodium Level 143 mmol/L Potassium Level 3.3 mmol/L Chloride Level 109 mmol/L Carbon Dioxide Level 24 mmol/L Anion Gap 10.0 mmol/L Blood Urea Nitrogen 10 mg/dl Creatinine 1.20 mg/dl Est Creatinine Clear Calc Drug Dose 98.1 ml/min Estimated GFR () 89.0 Estimated GFR (Non- 76.8 BUN/Creatinine Ratio 7.9 Random Glucose 103 mg/dl Calcium Level 8.2 mg/dl Phosphorus Level 1.6 mg/dl Magnesium Level 1.9 mg/dl Total Bilirubin 0.5 mg/dl Direct Bilirubin < 0.1 mg/dl Aspartate Amino Transf (AST/SGOT) 40 U/L Alanine Aminotransferase (ALT/SGPT) 23 U/L Alkaline Phosphatase 67 U/L Total Protein 6.3 gm/dl Albumin 2.5 gm/dl [~ rep ct add3]] CHEST ONE VIEW PORTABLE CLINICAL HISTORY: Desaturations with decreased heart function COMPARISON STUDY: Chest radiograph September 21, 2016. FINDINGS: A right internal jugular central line remains in place. There is no pneumothorax or pleural effusion. Cardiomediastinal silhouette is stable. Mild interstitial thickening has slightly progressed. Is right infrahilar opacity. IMPRESSION: 1. Slight progression of interstitial thickening which favors pulmonary edema. 2. Right infrahilar opacity which may reflect atelectasis or consolidation. Radiographic follow up is recommended. Electronically signed by: Scar Lechuga M.D. 09/22/2016 7:29 AM Dictated Date/Time: 09/22/2016 7:28 AM The status Assessment & Plan Clinical picture of acute myocarditis in otherwise healthy 36 yo male, with viral infection (adeno, Coxsackie, CMV, EBV, others) most likely, but Lyme, anaplasma/Ehrlichia also possible. Autoimmune disease less likely. As discussed with Dr. Koberna, doxycycline added to current Abx. Additional serologies/PCRs ordered. Will follow.
--- NOTE | 2016-09-22 09:36 | ECHOCARDIOGRAM REPORT ---
*NOTICE TO RECEIVING [employer] [facility] This information is strictly Confidential and protected under [place] law. [place] law prohibits you from making any further disclosure of this information unless further disclosure is expressly permitted by the written consent of the person to whom it pertains or is authorized by law. A general authorization for the release of medical or other information is not sufficient for this purpose. Hospital accepts no responsibility if the information is made available to any other person, INCLUDING THE PATIENT. Interpretation Summary * Name: MARNIE [place] Study Date: 09/22/2016 08:26 AM BP: 111/75 mmHg * Patient Location: [facility] HR: 68 * : 1980 (M/d/yyyy) Gender: Male Height: 71 in * Age: 36 yrs Ethnicity: [place] Weight: 204 lb * Ordering Physician: Ayana Ronquillo * Referring Physician: Self, Referred * Performed By: Melba Draper RDCS * * Reason For Study: Evaluate LV/RV function * BSA: 2.1 m2 * -- Conclusions -- * The left ventricle is grossly normal size. * Ejection Fraction = 55-60%. * Left ventricular systolic function is normal. * The left ventricular wall motion is normal. * The right ventricle is normal in size and function. * RV apex opens completely at end systole * Normal inferior vena cava size and collapsability with sniff indicates a normal right atrial pressure of 3 mmHg Procedure Details * A two-dimensional transthoracic echocardiogram was performed. * A contrast injection of Definity was performed to improve assessment of LV function. * Contrast was injected into an intravenous site in the central line. * One vial of Definity ultrasound contrast was diluted in normal saline to a total volume of 10 ml. A total of '2' ml of solution was administered during imaging. * Lot # [id number] of Definity utilized for procedure. * Expiration date OCT 31. * The attending nurse who injected the contrast agent was Dr. Sterling Shanks DO, RN. Left Ventricle * The left ventricle is grossly normal size. * There is normal left ventricular wall thickness. * Ejection Fraction = 55-60%. * Left ventricular systolic function is normal. * The left ventricular wall motion is normal. Right Ventricle * The right ventricle is normal in size and function. * RV apex opens completely at end systole Atria * The left atrial size is normal. * Right atrial size is normal. Mitral Valve * The mitral valve is normal. Aortic Valve * The aortic valve opens well. Pericardium/Pleural * Small pericardial effusion. Great Vessels * Normal inferior vena cava size and collapsability with sniff indicates a normal right atrial pressure of 3 mmHg MMode 2D Measurements and Calculations LVAd ap4 37.2 cm\S\2 LVLd ap4 8.9 cm EDV(MOD-sp4) 128.0 ml LVAs ap4 20.5 cm\S\2 LVLs ap4 7.0 cm ESV(MOD-sp4) 48.8 ml EF(MOD-sp4) 61.9 % LVAd ap2 38.0 cm\S\2 LVLd ap2 9.1 cm EDV(MOD-sp2) 129.0 ml LVAs ap2 22.5 cm\S\2 LVLs ap2 7.5 cm ESV(MOD-sp2) 55.8 ml EF(MOD-sp2) 56.7 % CO(MOD-sp4) 7.2 l/min CI(MOD-sp4) 3.4 l/min/m\S\2 SV(MOD-sp4) 79.2 ml SI(MOD-sp4) 37.2 ml/m\S\2 CO(MOD-sp2) 6.7 l/min CI(MOD-sp2) 3.1 l/min/m\S\2 SV(MOD-sp2) 73.2 ml SI(MOD-sp2) 34.4 ml/m\S\2
[2016-09-22] MEDS: DOXYCYCLINE IV 100 MG in DEXTROSE 5% 100ML 100 ML IV SCH ×2 (10:09→20:50)
[2016-09-22] MEDS ORDERED: NURSING VERBAL MED ORDER ONE (11:15)
[2016-09-22] MEDS ORDERED: VANCOMYCIN INJ 1,350 MG in SODIUM CHLORIDE 0.9% 250ML 250 ML IV SCH (16:00)
--- NOTE | 2016-09-22 16:29 | Family Medicine Progress Note ---
Progress Note Date of Service Sep 22, 2016. Subjective Pt evaluation today including: conversation w/ patient, conversation w/ family , physical exam, conversation w/ corporate health consultant, review of inpatient medication list Pain: minimal PO Intake: good Patient continues to progress well He is still having some mild chest discomfort with deep inspiration but he says it is much improved. He says that when he tried going to the toilet earlier his heart rate went up to 140 and he felt short of breath. he says this is because of some of the diuretic which he received He says he still has some chills occasionally Constitutional: + chills, No fever Respiratory: No cough, No sputum, No shortness of breath Cardiovascular: + chest pain, No edema, No palpitations Abdomen: No pain, No nausea, No vomiting Musculoskeletal: No joint pain, No muscle pain Male : No dysuria Endo: + fatigue Skin: No rash, No itch, No new/changing skin lesions Medications Current Inpatient Medications Medications (Trade) Dose Ordered Sig/Neymar Route Start Time Stop Time Status Last Admin Dose Admin Ioversol (Optiray 320) 125 ml UD PRN IV 09/21/16 04:15 09/25/16 04:14 Acetaminophen (Tylenol Tab) 650 mg Q4H PRN PO 09/21/16 06:15 10/21/16 06:14 09/22/16 05:53 650 MG Lorazepam (Ativan Tab) 0.5 mg Q4H PRN PO 09/21/16 06:15 10/21/16 06:14 Pantoprazole Sodium 40 mg/ Syringe 10 ml @ 5 mls/min DAILY@1100 IV 09/21/16 11:00 10/21/16 10:59 09/22/16 08:57 5 MLS/MIN Morphine Sulfate (MoRPHine SULFATE INJ) 4 mg Q2H PRN IV 09/21/16 06:15 10/05/16 06:14 Ceftriaxone Sodium 1 gm/ Dextrose 50 ml @ 100 mls/hr Q24H IV 09/21/16 09:00 09/23/16 06:44 09/22/16 08:57 100 MLS/HR Vancomycin HCl (Consult) 1 ea UD PRN N/A 09/21/16 07:00 10/21/16 06:59 Colchicine (Colchicine Tab) 0.6 mg QAM PO 09/22/16 09:00 10/22/16 08:59 09/22/16 08:57 0.6 MG Ondansetron HCl (Zofran Inj) 4 mg Q6H PRN IV 09/21/16 16:45 10/21/16 16:44 Heparin Sodium (Porcine) (Heparin 10 Unit/ ml 5 ml Flush) 5 ml PRN PRN FLUSH 09/22/16 00:30 10/22/16 00:29 Doxycycline Hyclate 100 mg/ Dextrose 110 ml @ 50 mls/hr Q12 IV 09/22/16 09:00 09/24/16 08:59 09/22/16 10:09 50 MLS/HR Vancomycin HCl 1350 mg/Sodium Chloride 277 ml @ 125 mls/hr Q10H IV 09/22/16 16:00 09/23/16 14:13 Objective Vital Signs Date Time Temp Pulse Resp B/P (MAP) Pulse Ox O2 Delivery O2 Flow Rate FiO2 09/22/16 14:00 37.1 86 18 92/64 (73) 96 Nasal Cannula 2.0 09/22/16 13:01 81 92/64 (70) 96 09/22/16 13:00 79 97 09/22/16 12:01 88 100/65 (71) 97 09/22/16 12:00 86 18 100/65 (77) 98 Nasal Cannula 2.0 09/22/16 12:00 87 98 09/22/16 12:00 37.1 92 14 112/72 (79) 97 09/22/16 12:00 98 2.0 09/22/16 11:00 37.1 92 14 112/72 (79) 97 09/22/16 10:00 37.1 92 14 112/72 (79) 97 09/22/16 09:46 92 112/72 (79) 97 09/22/16 09:46 92 112/72 (85) 97 09/22/16 09:45 93 97 09/22/16 09:31 92 108/73 (85) 95 09/22/16 09:31 92 108/73 (79) 95 09/22/16 09:30 97 94 09/22/16 09:16 96 105/68 (75) 95 09/22/16 09:16 96 105/68 (80) 95 09/22/16 09:15 99 95 09/22/16 09:01 100 97/68 (78) 95 09/22/16 09:01 100 97/68 (74) 95 09/22/16 09:00 97 94 09/22/16 09:00 97 94 09/22/16 08:46 96 107/75 (86) 94 09/22/16 08:46 96 107/75 (81) 94 09/22/16 08:45 92 96 09/22/16 08:31 103 113/78 (90) 96 09/22/16 08:31 103 113/78 (84) 96 09/22/16 08:30 102 96 09/22/16 08:15 133 95 09/22/16 08:01 90 105/68 (80) 95 09/22/16 08:01 90 105/68 (85) 95 09/22/16 08:00 Room Air 09/22/16 08:00 92 95 09/22/16 08:00 95 Nasal Cannula 2.0 09/22/16 08:00 92 95 09/22/16 07:45 93 95 09/22/16 07:30 92 93 09/22/16 07:15 110 93 09/22/16 07:01 82 103/67 (79) 94 09/22/16 07:01 82 103/67 (79) 94 09/22/16 07:00 82 94 09/22/16 07:00 82 94 09/22/16 04:01 37.1 68 14 111/75 (87) 94 Nasal Cannula 2.0 09/22/16 04:00 Nasal Cannula 2.0 09/22/16 03:01 67 16 111/76 (88) 96 Nasal Cannula 2.0 09/22/16 02:01 66 16 112/72 (85) 95 Nasal Cannula 2.0 09/22/16 01:01 62 18 116/76 (89) 96 Nasal Cannula 2.0 09/22/16 00:01 36.4 63 18 97/64 (75) 95 Nasal Cannula 2.0 09/22/16 00:01 Nasal Cannula 2.0 09/21/16 23:01 63 16 103/66 (78) 94 Nasal Cannula 2.0 09/21/16 22:01 69 20 106/68 (81) 95 Nasal Cannula 2.0 09/21/16 21:01 69 18 117/74 (88) 95 Nasal Cannula 2.0 09/21/16 20:01 37.8 75 20 107/64 (78) 93 Nasal Cannula 2.0 09/21/16 20:00 Nasal Cannula 2.0 09/21/16 18:01 90 104/67 (79) 95 Room Air 09/21/16 18:00 87 95 09/21/16 17:01 91 119/79 (92) 98 09/21/16 17:00 90 97 Physical Exam General Appearance: WD/WN, no apparent distress, + pertinent finding (has a central line place, has worried appearance) ENT: normal ENT inspection, pharynx normal (erythematous at the back with some small vesicles) Neck: no adenopathy, no JVD, no carotid bruits Respiratory/Chest: lungs clear, no respiratory distress, no accessory muscle use Cardiovascular: regular rate, rhythm, no edema, no murmur, + pertinent finding (no pain to palpation of chest) Abdomen: normal bowel sounds, non tender, soft Extremities: non-tender, no pedal edema Neurologic/Psychiatric: alert, normal mood/affect, oriented x 3 Skin: normal color, warm/dry, no rash Laboratory Results Results Past 24 Hours Test 09/21/16 19:30 09/21/16 21:15 09/22/16 01:26 09/22/16 05:24 Range/Units Urine Color YELLOW Urine Appearance CLOUDY CLEAR Urine pH 5.5 4.5-7.5 Urine Specific [place] 1.024 1.000-1.030 Urine Protein TRACE NEG Urine Glucose (UA) NEG NEG Urine Ketones NEG NEG Urine Occult Blood NEG NEG Urine Nitrite NEG NEG Urine Bilirubin NEG NEG Urine Urobilinogen NEG NEG Urine Leukocyte Esterase NEG NEG Urine WBC (Auto) 1-5 0-5 /hpf Urine RBC (Auto) 0-4 0-4 /hpf Urine Hyaline Casts (Auto) 1-5 0-5 /lpf Urine Epithelial Cells (Auto) 20-30 0-5 /lpf Urine Bacteria (Auto) NEG NEG Urine Opiates Screen NEG NEG Urine Methadone, Qualitative NEG NEG Urine Barbiturates NEG NEG Urine Phencyclidine (PCP) Level NEG NEG Ur Amphetamine/Methamphetamine NEG NEG MDMA (Ecstasy) Screen NEG NEG Urine Benzodiazepines Screen NEG NEG Urine Cocaine Metabolite NEG NEG Urine Marijuana (THC) NEG NEG Bedside Glucose 108 70-99 mg/dl Troponin I 6.040 0-0.045 ng/ml White Blood Count 10.96 4.8-10.8 K/uL Red Blood Count 4.42 4.7-6.1 M/uL Hemoglobin 13.3 14.0-18.0 g/dL Hematocrit 39.9 42-52 % Mean Corpuscular Volume 90.3 80-100 fL Mean Corpuscular Hemoglobin 30.1 25-34 pg Mean Corpuscular Hemoglobin Concent 33.3 32-36 g/dl Platelet Count 126 130-400 K/uL Mean Platelet Volume 11.7 7.4-10.4 fL Neutrophils (%) (Auto) 77.5 % Lymphocytes (%) (Auto) 12.7 % Monocytes (%) (Auto) 9.1 % Eosinophils (%) (Auto) 0.2 % Basophils (%) (Auto) 0.2 % Neutrophils # (Auto) 8.50 1.4-6.5 K/uL Lymphocytes # (Auto) 1.39 1.2-3.4 K/uL Monocytes # (Auto) 1.00 0.11-0.59 K/uL Eosinophils # (Auto) 0.02 0-0.5 K/uL Basophils # (Auto) 0.02 0-0.2 K/uL RDW Standard Deviation 45.0 36.4-46.3 fL RDW Coefficient of Variation 13.4 11.5-14.5 % Immature Granulocyte % (Auto) 0.3 % Immature Granulocyte # (Auto) 0.03 0.00-0.02 K/uL Sodium Level 143 136-145 mmol/L Potassium Level 3.3 3.5-5.1 mmol/L Chloride Level 109 98-107 mmol/L Carbon Dioxide Level 24 21-32 mmol/L Anion Gap 10.0 3-11 mmol/L Blood Urea Nitrogen 10 7-18 mg/dl Creatinine 1.20 0.60-1.40 mg/dl Est Creatinine Clear Calc Drug Dose 98.1 ml/min Estimated GFR () 89.0 Estimated GFR (Non- 76.8 BUN/Creatinine Ratio 7.9 10-20 Random Glucose 103 70-99 mg/dl Calcium Level 8.2 8.5-10.1 mg/dl Phosphorus Level 1.6 2.5-4.9 mg/dl Magnesium Level 1.9 1.8-2.4 mg/dl Total Bilirubin 0.5 0.2-1 mg/dl Direct Bilirubin < 0.1 0-0.2 mg/dl Aspartate Amino Transf (AST/SGOT) 40 15-37 U/L Alanine Aminotransferase (ALT/SGPT) 23 12-78 U/L Alkaline Phosphatase 67 45-117 U/L Total Protein 6.3 6.4-8.2 gm/dl Albumin 2.5 3.4-5.0 gm/dl Test 09/22/16 08:25 09/22/16 09:42 09/22/16 11:47 09/22/16 14:00 Range/Units Phosphorus Level 2.1 2.5-4.9 mg/dl Assessment and Plan 36 year old male in the ICU due to myopericarditis. Is currently stable and progressing well. Viral Myopericarditis - Echo today showed trace pleural effusion, LVEF 55, RV slightly dilated, IVC normal and no vegetations - Colchicine .6mg - Doxy and Ceftriaxone IV. Stopped Vanc today. BCx pending - Sodium phosphate IV - ID consult with [place], erlichiosis, anaplasmosis, EBV, CMV pending. Lyme negative - Morphine Iv for pain Hypokalemia - 3.3, continue to trend - supplement given IV Hypophosphatemia - 1.7, continue to trend - supplement given IV Disp - remove central line tomorrow and move to telemetry FULL CODE Resident Physician Supervision Note: I interviewed and examined the patient. Discussed with Dr. Arita and agree with findings and plan as documented in the note. 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 all other ROS otherwise negative except for as above vitals noted nnad breathing unlabored no pallor or icterus myopericarditis - viral vs tick borne. colchicine and doxy. improving. can stop rocephin and vanco Continued [facility] stay due to: multiple IV medications needed
[2016-09-23] VITALS (10 sets, daily range): BP systolic 102–121; BP diastolic 56–82; PULSE 57–71; TEMP 36.6–37.3; O2SAT 93–98
[2016-09-23] MEDS: ACETAMINOPHEN 325 MG TAB PO PRN ×2 (05:22→22:10)
[2016-09-23 06:13] LABS: ALKALINE PHOSPHATASE 60 U/L (45-117); AST/SGOT 21 U/L (15-37); BLOOD UREA NITROGEN 10 mg/dl (7-18); BUN/CREATININE RATIO 10.2 (10-20); CALCIUM 8.4 mg/dl (8.5-10.1); CARBON DIOXIDE 29 mmol/L (21-32); CHLORIDE 107 mmol/L (98-107); CREATININE 0.95 mg/dl (0.60-1.40); GLUCOSE 95 mg/dl (70-99); POTASSIUM 3.4 mmol/L (3.5-5.1); SODIUM 141 mmol/L (136-145)
[2016-09-23 06:15] LABS: ALT/SGPT 23 U/L (12-78); PHOSPHORUS 2.2 mg/dl (2.5-4.9)
[2016-09-23 06:24] LABS: HEMATOCRIT 35.5 % (42-52); MEAN CELL VOLUME 89.4 fL (80-100); MEAN CORPUSCULAR HEMOGLOBIN 30.2 pg (25-34); MEAN CORPUSCULAR HGB CONC 33.8 g/dl (32-36); MEAN PLATELET VOLUME 11.2 fL (7.4-10.4); PLATELET COUNT 140 K/uL (130-400); RED BLOOD COUNT 3.97 M/uL (4.7-6.1); WHITE BLOOD COUNT 8.02 K/uL (4.8-10.8)
[2016-09-23 06:25] LABS: BASO % 0.2 %; BASO ABS # 0.02 K/uL (0-0.2); COMPLETE YES; EOS % 1.2 %; IG% 0.5 %; LYMPH % 28.9 %; LYMPH ABS # 2.32 K/uL (1.2-3.4); MONO % 12.6 %; NEUT % 56.6 %
[2016-09-23] MEDS ORDERED: PERFLUTREN LIPID MICROSPHERE (DEFINITY) IV ONE (06:40)
--- NOTE | 2016-09-23 07:57 | Critical Care Progress Note ---
Critical Care Progress Note Date of Service Sep 23, 2016. ICU Day ICU Day Number: [address] Huddleston Subjective Feeling better. Less dyspnea. PO intake tolerated. OBR effective. Hypoxemia resolved. Sitting in chair and looking much more comfortable. Objective LOC--awake and alert--appropriate HEENT--sclera pale Pulmonary--exchange is adequate--no wheezing Cardio--faint rub suggested. No JVD seen. Perfusion is ok GI--soft and functional --no issues suggested Musculoskeletal--no erythema/effusion/changes Neuro--intact. No focal changes. Psych--anxious Derm--no rash observed. Current SOFA Score SOFA Score Response (Comments) Value PaO2/FiO2 (mmHg) < 300 2 SaO2 / FIO2 221 - 301 1 Platelets (x10) < 150 1 Bilirubin (mg/dL) < 1.2 0 [place] Coma Score 15 0 Level of Hypotension No Hypotension 0 Creatinine (mg/dL) 1.2 - 1.9 1 Total 5 Assessment & Plan (1) Vomiting The vomiting has resolved at this time. (2) Fever Febrile illness with hypotension and myocarditis--adding evaluation for Anaplasmosis and [place]. Ehrlichiosis labs also added. Spoke with ID and Doxy started. Will require some additional IV fluids. (3) WANDER (acute kidney injury) Still requires some volume. Will track this closely. Off the dobutamine for now. (4) Hypotension (5) Leukocytosis (6) Elevated troponin (7) Hyperglycemia no new developments (8) Chest pain symptomatic treatment in place. Febrile illness with myocarditis. Clinically he is improved. Diagnostic labs pending. Clinically ok for step down guadarrama. Recommend continuation of the Doxy until labs have returned. IJ can come out. I spoke with Cardiology who are also happy with the improvement seen. Consults & Procedures Consultants: ID Procedures: None Data Medications: Current Inpatient Medications Medications (Trade) Dose Ordered Sig/Neymar Route Start Time Stop Time Status Last Admin Dose Admin Ioversol (Optiray 320) 125 ml UD PRN IV 09/21/16 04:15 09/25/16 04:14 Acetaminophen (Tylenol Tab) 650 mg Q4H PRN PO 09/21/16 06:15 10/21/16 06:14 09/23/16 05:22 650 MG Lorazepam (Ativan Tab) 0.5 mg Q4H PRN PO 09/21/16 06:15 10/21/16 06:14 Pantoprazole Sodium 40 mg/ Syringe 10 ml @ 5 mls/min DAILY@1100 IV 09/21/16 11:00 10/21/16 10:59 09/22/16 08:57 5 MLS/MIN Morphine Sulfate (MoRPHine SULFATE INJ) 4 mg Q2H PRN IV 09/21/16 06:15 10/05/16 06:14 Colchicine (Colchicine Tab) 0.6 mg QAM PO 09/22/16 09:00 10/22/16 08:59 09/22/16 08:57 0.6 MG Ondansetron HCl (Zofran Inj) 4 mg Q6H PRN IV 09/21/16 16:45 10/21/16 16:44 Heparin Sodium (Porcine) (Heparin 10 Unit/ ml 5 ml Flush) 5 ml PRN PRN FLUSH 09/22/16 00:30 10/22/16 00:29 Doxycycline Hyclate 100 mg/ Dextrose 110 ml @ 50 mls/hr Q12 IV 09/22/16 09:00 09/24/16 08:59 09/22/16 20:50 50 MLS/HR Vital Signs: Date Time Temp Pulse Resp B/P (MAP) Pulse Ox O2 Delivery O2 Flow Rate FiO2 09/23/16 06:00 36.9 60 14 112/77 (89) 93 Room Air 09/23/16 04:00 37.0 57 14 109/68 (82) 95 Nasal Cannula 2.0 09/23/16 04:00 95 Nasal Cannula 2.0 09/23/16 02:00 58 16 108/75 (86) 94 Nasal Cannula 2.0 09/23/16 00:00 37.1 57 16 121/76 (91) 96 Nasal Cannula 2.0 09/22/16 23:51 96 Nasal Cannula 2.0 09/22/16 22:00 36.8 68 16 101/77 (85) 92 Room Air 09/22/16 20:00 37.1 72 20 110/71 (84) 93 Room Air 09/22/16 20:00 93 Room Air 09/22/16 18:00 37.5 86 18 100/72 (81) 92 Room Air 09/22/16 16:00 37.7 80 20 111/64 (80) 97 Room Air 09/22/16 16:00 95 Room Air 09/22/16 14:00 37.1 86 18 92/64 (73) 96 Nasal Cannula 2.0 09/22/16 13:01 81 92/64 (70) 96 09/22/16 13:00 79 97 09/22/16 12:01 88 100/65 (71) 97 09/22/16 12:00 86 18 100/65 (77) 98 Nasal Cannula 2.0 09/22/16 12:00 87 98 09/22/16 12:00 37.1 92 14 112/72 (79) 97 09/22/16 12:00 98 2.0 09/22/16 11:00 37.1 92 14 112/72 (79) 97 09/22/16 10:00 37.1 92 14 112/72 (79) 97 09/22/16 09:46 92 112/72 (79) 97 09/22/16 09:46 92 112/72 (85) 97 09/22/16 09:45 93 97 09/22/16 09:31 92 108/73 (85) 95 09/22/16 09:31 92 108/73 (79) 95 09/22/16 09:30 97 94 09/22/16 09:16 96 105/68 (75) 95 09/22/16 09:16 96 105/68 (80) 95 09/22/16 09:15 99 95 09/22/16 09:01 100 97/68 (78) 95 09/22/16 09:01 100 97/68 (74) 95 09/22/16 09:00 97 94 09/22/16 09:00 97 94 09/22/16 08:46 96 107/75 (86) 94 09/22/16 08:46 96 107/75 (81) 94 09/22/16 08:45 92 96 09/22/16 08:31 103 113/78 (90) 96 09/22/16 08:31 103 113/78 (84) 96 09/22/16 08:30 102 96 09/22/16 08:15 133 95 09/22/16 08:01 90 105/68 (80) 95 09/22/16 08:01 90 105/68 (85) 95 09/22/16 08:00 Room Air 09/22/16 08:00 92 95 09/22/16 08:00 95 Nasal Cannula 2.0 09/22/16 08:00 92 95 Laboratory Results: Last 24 Hours Test 09/22/16 08:25 09/22/16 09:42 09/22/16 11:47 09/22/16 14:00 Phosphorus Level 2.1 mg/dl Test 09/22/16 17:30 09/22/16 17:33 09/22/16 22:19 09/23/16 05:16 Bedside Glucose 131 mg/dl 113 mg/dl White Blood Count 8.02 K/uL Red Blood Count 3.97 M/uL Hemoglobin 12.0 g/dL Hematocrit 35.5 % Mean Corpuscular Volume 89.4 fL Mean Corpuscular Hemoglobin 30.2 pg Mean Corpuscular Hemoglobin Concent 33.8 g/dl Platelet Count 140 K/uL Mean Platelet Volume 11.2 fL Neutrophils (%) (Auto) 56.6 % Lymphocytes (%) (Auto) 28.9 % Monocytes (%) (Auto) 12.6 % Eosinophils (%) (Auto) 1.2 % Basophils (%) (Auto) 0.2 % Neutrophils # (Auto) 4.53 K/uL Lymphocytes # (Auto) 2.32 K/uL Monocytes # (Auto) 1.01 K/uL Eosinophils # (Auto) 0.10 K/uL Basophils # (Auto) 0.02 K/uL RDW Standard Deviation 44.3 fL RDW Coefficient of Variation 13.4 % Immature Granulocyte % (Auto) 0.5 % Immature Granulocyte # (Auto) 0.04 K/uL Red Blood Cell Morphology Unremarkable Sodium Level 141 mmol/L Potassium Level 3.4 mmol/L Chloride Level 107 mmol/L Carbon Dioxide Level 29 mmol/L Anion Gap 5.0 mmol/L Blood Urea Nitrogen 10 mg/dl Creatinine 0.95 mg/dl Est Creatinine Clear Calc Drug Dose 123.9 ml/min Estimated GFR () 118.0 Estimated GFR (Non- 101.9 BUN/Creatinine Ratio 10.2 Random Glucose 95 mg/dl Calcium Level 8.4 mg/dl Phosphorus Level 2.2 mg/dl Magnesium Level 2.0 mg/dl Total Bilirubin 0.5 mg/dl Direct Bilirubin < 0.1 mg/dl Aspartate Amino Transf (AST/SGOT) 21 U/L Alanine Aminotransferase (ALT/SGPT) 23 U/L Alkaline Phosphatase 60 U/L Total Protein 6.0 gm/dl Albumin 2.3 gm/dl
[2016-09-23] MEDS: COLCHICINE 0.6 MG TAB PO SCH (08:39)
[2016-09-23] MEDS: DOXYCYCLINE IV 100 MG in DEXTROSE 5% 100ML 100 ML IV SCH ×2 (08:39→22:03)
--- NOTE | 2016-09-23 08:55 | Cardiology Follow-Up ---
Subjective General Date of Service: Sep 23, 2016. Pt evaluation today including: conversation w/ patient, chart review, lab review, review of studies, conversation w/ practice consultant History of Present Illness The patient is a 36 year old male Allergies Coded Allergies: No Known Allergies (Unverified , 09/20/16) Social History Smoking Status: Never Smoker Hx Tobacco Use In Past Year?: No Hx Alcohol Use - Type And Amou: No Hx Substance Use - Type And Am: No Problem List Medical Problems: (1) Acute kidney injury Status: Acute (2) Fever Status: Acute (3) LLQ abdominal pain Status: Acute (4) Myocarditis Status: Acute Review of Systems Respiratory: No shortness of breath, No dyspnea at rest Cardiac: + chest pain (minimal), No edema, No palpitations Additional ROS Details: looks much better and feels much better; sitting up in bed Physical Exam Vital Signs Last Vital Signs Documentation Date Time Temp Pulse Resp B/P (MAP) Pulse Ox O2 Delivery O2 Flow Rate FiO2 09/23/16 06:00 36.9 60 14 112/77 (89) 93 Room Air 09/23/16 04:00 2.0 Physical Exam Constitutional: General Apperance: well-developed Level of Distress: NAD, acutely ill Psychiatric: Mental Status: active & alert, normal affect Lungs: Respiratory effort: no dyspnea Auscultation: breath sounds normal, no wheezing, no rales/crackles, no rhonchi Cardiovascular: Heart Auscultation: RRR, no murmurs, no gallops, rub (very soft rub; much improved) Abdomen: Bowel Sounds: diminished Inspection & Palpation: soft, non-distended Extremities: no edema, pertinent finding (ext are cool to touch) Assessment and Plan Assessment and Plan 1. viral myopericarditis with associated fevers and chills, chest pain, mild global hypokinesis (on admission) and mildly elevated troponin and hypotension ( resolved) 2. Acute renal failure -resolved 3. Elevated lactic acid level--on admission 4. Elevated sedimentation rate and CRP 6. Pericarditis with pericardial effusion on Colchicine .0.6 mg daily Bedside echo personally reviewed (09/23) with small effusion. (slightly bigger than yesterday) LV function normal by Biplane Crowley's LVEF 60-65% and improved from yesterday RV size normal and function looks better There is nothing on his echocardiogram at this point to suggest endocarditis. Blood cultures (negative so far) and viral cultures have been ordered. Additional culture for [place], ehrlichiosis, anaplasmosis sent. looks so much better this am ; ok toTele Continue Colchicine and add BB maybe tomorrow to reduce the risk of atrial and ventricular arrhythmias All this was discussed with the tetryl blender operator service. Laboratory Results Last 24 Hours Test 09/22/16 09:42 09/22/16 11:47 09/22/16 14:00 09/22/16 17:30 Phosphorus Level 2.1 mg/dl Test 09/22/16 17:33 09/22/16 22:19 09/23/16 05:16 Bedside Glucose 131 mg/dl 113 mg/dl White Blood Count 8.02 K/uL Red Blood Count 3.97 M/uL Hemoglobin 12.0 g/dL Hematocrit 35.5 % Mean Corpuscular Volume 89.4 fL Mean Corpuscular Hemoglobin 30.2 pg Mean Corpuscular Hemoglobin Concent 33.8 g/dl Platelet Count 140 K/uL Mean Platelet Volume 11.2 fL Neutrophils (%) (Auto) 56.6 % Lymphocytes (%) (Auto) 28.9 % Monocytes (%) (Auto) 12.6 % Eosinophils (%) (Auto) 1.2 % Basophils (%) (Auto) 0.2 % Neutrophils # (Auto) 4.53 K/uL Lymphocytes # (Auto) 2.32 K/uL Monocytes # (Auto) 1.01 K/uL Eosinophils # (Auto) 0.10 K/uL Basophils # (Auto) 0.02 K/uL RDW Standard Deviation 44.3 fL RDW Coefficient of Variation 13.4 % Immature Granulocyte % (Auto) 0.5 % Immature Granulocyte # (Auto) 0.04 K/uL Red Blood Cell Morphology Unremarkable Sodium Level 141 mmol/L Potassium Level 3.4 mmol/L Chloride Level 107 mmol/L Carbon Dioxide Level 29 mmol/L Anion Gap 5.0 mmol/L Blood Urea Nitrogen 10 mg/dl Creatinine 0.95 mg/dl Est Creatinine Clear Calc Drug Dose 123.9 ml/min Estimated GFR () 118.0 Estimated GFR (Non- 101.9 BUN/Creatinine Ratio 10.2 Random Glucose 95 mg/dl Calcium Level 8.4 mg/dl Phosphorus Level 2.2 mg/dl Magnesium Level 2.0 mg/dl Total Bilirubin 0.5 mg/dl Direct Bilirubin < 0.1 mg/dl Aspartate Amino Transf (AST/SGOT) 21 U/L Alanine Aminotransferase (ALT/SGPT) 23 U/L Alkaline Phosphatase 60 U/L Total Protein 6.0 gm/dl Albumin 2.3 gm/dl
--- NOTE | 2016-09-23 09:24 | Family Medicine Progress Note ---
Progress Note Date of Service Sep 23, 2016. Subjective Pt evaluation today including: conversation w/ patient, conversation w/ family , physical exam, review of inpatient medication list Pain: minimal PO Intake: good Voiding: no voiding problems Patient is feeling much better today Has been out of bed and walking around the room. Still having some mild chest discomfort but says it is much improved since yesterday. Constitutional: + sweats (at night), No fever, No chills Respiratory: No cough, No shortness of breath Cardiovascular: + chest pain, No edema, No palpitations Abdomen: No pain, No nausea, No vomiting, No diarrhea, No constipation Musculoskeletal: No joint pain, No muscle pain Endo: + fatigue Skin: No rash, No itch, No new/changing skin lesions Medications Current Inpatient Medications Medications (Trade) Dose Ordered Sig/Neymar Route Start Time Stop Time Status Last Admin Dose Admin Ioversol (Optiray 320) 125 ml UD PRN IV 09/21/16 04:15 09/25/16 04:14 Acetaminophen (Tylenol Tab) 650 mg Q4H PRN PO 09/21/16 06:15 10/21/16 06:14 09/23/16 05:22 650 MG Lorazepam (Ativan Tab) 0.5 mg Q4H PRN PO 09/21/16 06:15 10/21/16 06:14 Pantoprazole Sodium 40 mg/ Syringe 10 ml @ 5 mls/min DAILY@1100 IV 09/21/16 11:00 10/21/16 10:59 09/22/16 08:57 5 MLS/MIN Morphine Sulfate (MoRPHine SULFATE INJ) 4 mg Q2H PRN IV 09/21/16 06:15 10/05/16 06:14 Colchicine (Colchicine Tab) 0.6 mg QAM PO 09/22/16 09:00 10/22/16 08:59 09/23/16 08:39 0.6 MG Ondansetron HCl (Zofran Inj) 4 mg Q6H PRN IV 09/21/16 16:45 10/21/16 16:44 Heparin Sodium (Porcine) (Heparin 10 Unit/ ml 5 ml Flush) 5 ml PRN PRN FLUSH 09/22/16 00:30 10/22/16 00:29 Doxycycline Hyclate 100 mg/ Dextrose 110 ml @ 50 mls/hr Q12 IV 09/22/16 09:00 09/24/16 08:59 09/23/16 08:39 50 MLS/HR Objective Vital Signs Date Time Temp Pulse Resp B/P (MAP) Pulse Ox O2 Delivery O2 Flow Rate FiO2 09/23/16 06:00 36.9 60 14 112/77 (89) 93 Room Air 09/23/16 04:00 37.0 57 14 109/68 (82) 95 Nasal Cannula 2.0 09/23/16 04:00 95 Nasal Cannula 2.0 09/23/16 02:00 58 16 108/75 (86) 94 Nasal Cannula 2.0 09/23/16 00:00 37.1 57 16 121/76 (91) 96 Nasal Cannula 2.0 09/22/16 23:51 96 Nasal Cannula 2.0 09/22/16 22:00 36.8 68 16 101/77 (85) 92 Room Air 09/22/16 20:00 37.1 72 20 110/71 (84) 93 Room Air 09/22/16 20:00 93 Room Air 09/22/16 18:00 37.5 86 18 100/72 (81) 92 Room Air 09/22/16 16:00 37.7 80 20 111/64 (80) 97 Room Air 09/22/16 16:00 95 Room Air 09/22/16 14:00 37.1 86 18 92/64 (73) 96 Nasal Cannula 2.0 09/22/16 13:01 81 92/64 (70) 96 09/22/16 13:00 79 97 09/22/16 12:01 88 100/65 (71) 97 09/22/16 12:00 86 18 100/65 (77) 98 Nasal Cannula 2.0 09/22/16 12:00 87 98 09/22/16 12:00 37.1 92 14 112/72 (79) 97 09/22/16 12:00 98 2.0 09/22/16 11:00 37.1 92 14 112/72 (79) 97 09/22/16 10:00 37.1 92 14 112/72 (79) 97 09/22/16 09:46 92 112/72 (79) 97 09/22/16 09:46 92 112/72 (85) 97 09/22/16 09:45 93 97 09/22/16 09:31 92 108/73 (85) 95 09/22/16 09:31 92 108/73 (79) 95 09/22/16 09:30 97 94 Physical Exam General Appearance: WD/WN, no apparent distress, + pertinent finding (sitting in his chair at the bedside, happy and in no distress) ENT: hearing grossly normal, pharynx normal (erythematous) Neck: no JVD, no carotid bruits, trachea midline Respiratory/Chest: lungs clear, no respiratory distress, no accessory muscle use Cardiovascular: regular rate, rhythm, no edema, no murmur Abdomen: normal bowel sounds, non tender, soft Extremities: non-tender, no pedal edema, pelvis stable Neurologic/Psychiatric: alert, normal mood/affect, oriented x 3 Laboratory Results Results Past 24 Hours Test 09/22/16 09:42 09/22/16 11:47 09/22/16 14:00 09/22/16 17:30 Range/Units Phosphorus Level 2.1 2.5-4.9 mg/dl Test 09/22/16 17:33 09/22/16 22:19 09/23/16 05:16 Range/Units Bedside Glucose 131 113 70-99 mg/dl White Blood Count 8.02 4.8-10.8 K/uL Red Blood Count 3.97 4.7-6.1 M/uL Hemoglobin 12.0 14.0-18.0 g/dL Hematocrit 35.5 42-52 % Mean Corpuscular Volume 89.4 80-100 fL Mean Corpuscular Hemoglobin 30.2 25-34 pg Mean Corpuscular Hemoglobin Concent 33.8 32-36 g/dl Platelet Count 140 130-400 K/uL Mean Platelet Volume 11.2 7.4-10.4 fL Neutrophils (%) (Auto) 56.6 % Lymphocytes (%) (Auto) 28.9 % Monocytes (%) (Auto) 12.6 % Eosinophils (%) (Auto) 1.2 % Basophils (%) (Auto) 0.2 % Neutrophils # (Auto) 4.53 1.4-6.5 K/uL Lymphocytes # (Auto) 2.32 1.2-3.4 K/uL Monocytes # (Auto) 1.01 0.11-0.59 K/uL Eosinophils # (Auto) 0.10 0-0.5 K/uL Basophils # (Auto) 0.02 0-0.2 K/uL RDW Standard Deviation 44.3 36.4-46.3 fL RDW Coefficient of Variation 13.4 11.5-14.5 % Immature Granulocyte % (Auto) 0.5 % Immature Granulocyte # (Auto) 0.04 0.00-0.02 K/uL Red Blood Cell Morphology Unremarkable Sodium Level 141 136-145 mmol/L Potassium Level 3.4 3.5-5.1 mmol/L Chloride Level 107 98-107 mmol/L Carbon Dioxide Level 29 21-32 mmol/L Anion Gap 5.0 3-11 mmol/L Blood Urea Nitrogen 10 7-18 mg/dl Creatinine 0.95 0.60-1.40 mg/dl Est Creatinine Clear Calc Drug Dose 123.9 ml/min Estimated GFR () 118.0 Estimated GFR (Non- 101.9 BUN/Creatinine Ratio 10.2 10-20 Random Glucose 95 70-99 mg/dl Calcium Level 8.4 8.5-10.1 mg/dl Phosphorus Level 2.2 2.5-4.9 mg/dl Magnesium Level 2.0 1.8-2.4 mg/dl Total Bilirubin 0.5 0.2-1 mg/dl Direct Bilirubin < 0.1 0-0.2 mg/dl Aspartate Amino Transf (AST/SGOT) 21 15-37 U/L Alanine Aminotransferase (ALT/SGPT) 23 12-78 U/L Alkaline Phosphatase 60 45-117 U/L Total Protein 6.0 6.4-8.2 gm/dl Albumin 2.3 3.4-5.0 gm/dl Assessment and Plan 36 year old male in the ICU due to myopericarditis. Is currently stable and progressing well. Viral Myopericarditis - Echo today showed improved LV function of 60-65. No vegetations. - Colchicine .6mg daily and morphine prn - Continue doxy. Ceftriaxone and vanc stopped. Bcx negative to date - Sodium phosphate IV - ID consult with [place], erlichiosis, anaplasmosis, EBV, CMV pending. Lyme negative - Cardiology suggest starting BB tomorrow to prevent any arrythmias Hypophosphatemia - 2.2, continue to trend - supplement given IV Disp - remove central line today and transfer to telemetry FULL CODE Resident Physician Supervision Note: I interviewed and examined the patient. Discussed with Dr. Arita and agree with findings and plan as documented in the note. Any exceptions or clarifications are listed here: None Documented By: Joseph Tim feeling better central line out wondering when he can go back to work. all other ROS otherwise negative except for as above vitals noted nad breathing unlabored no pallor or icterus site of prior central line clean myopericarditis - initially shock as well - ?hypovolemic w some cardiogenic accentuation appearing most likely - improved. otherwise as above Continued [facility] stay due to: multiple IV medications needed
[2016-09-23] MEDS ORDERED: VANCOMYCIN TROUGH ONE (11:30)
--- NOTE | 2016-09-23 13:30 | Infectious Disease Progress Nt ---
Progress Note Date of Service Sep 23, 2016. Subjective Pt evaluation today including: conversation w/ patient, conversation w/ family , physical exam, chart review, lab review, review of studies, conversation w/ relationship consultant, review of inpatient medication list Patient feeling much better. Only minimal chest pain. No fever. No shortness of breath. All cultures remain negative to date. All Other Systems: Reviewed and Negative Medications Current Inpatient Medications Medications (Trade) Dose Ordered Sig/Neymar Route Start Time Stop Time Status Last Admin Dose Admin Ioversol (Optiray 320) 125 ml UD PRN IV 09/21/16 04:15 09/25/16 04:14 Acetaminophen (Tylenol Tab) 650 mg Q4H PRN PO 09/21/16 06:15 10/21/16 06:14 09/23/16 05:22 650 MG Lorazepam (Ativan Tab) 0.5 mg Q4H PRN PO 09/21/16 06:15 10/21/16 06:14 Morphine Sulfate (MoRPHine SULFATE INJ) 4 mg Q2H PRN IV 09/21/16 06:15 10/05/16 06:14 Colchicine (Colchicine Tab) 0.6 mg QAM PO 09/22/16 09:00 10/22/16 08:59 09/23/16 08:39 0.6 MG Ondansetron HCl (Zofran Inj) 4 mg Q6H PRN IV 09/21/16 16:45 10/21/16 16:44 Heparin Sodium (Porcine) (Heparin 10 Unit/ ml 5 ml Flush) 5 ml PRN PRN FLUSH 09/22/16 00:30 10/22/16 00:29 Doxycycline Hyclate 100 mg/ Dextrose 110 ml @ 50 mls/hr Q12 IV 09/22/16 09:00 09/24/16 08:59 09/23/16 08:39 50 MLS/HR Pantoprazole Sodium (Protonix Tab) 40 mg QAM PO 09/23/16 11:00 10/23/16 10:59 Objective Vital Signs Date Time Temp Pulse Resp B/P (MAP) Pulse Ox O2 Delivery O2 Flow Rate FiO2 09/23/16 12:00 98 Room Air 09/23/16 12:00 71 18 108/56 (73) 93 Room Air 09/23/16 10:00 62 18 95 Room Air 09/23/16 08:00 98 Room Air 09/23/16 08:00 37.0 62 18 102/70 (81) 97 Room Air 09/23/16 08:00 Room Air 09/23/16 06:00 36.9 60 14 112/77 (89) 93 Room Air 09/23/16 04:00 37.0 57 14 109/68 (82) 95 Nasal Cannula 2.0 09/23/16 04:00 95 Nasal Cannula 2.0 09/23/16 02:00 58 16 108/75 (86) 94 Nasal Cannula 2.0 09/23/16 00:00 37.1 57 16 121/76 (91) 96 Nasal Cannula 2.0 09/22/16 23:51 96 Nasal Cannula 2.0 09/22/16 22:00 36.8 68 16 101/77 (85) 92 Room Air 09/22/16 20:00 37.1 72 20 110/71 (84) 93 Room Air 09/22/16 20:00 93 Room Air 09/22/16 18:00 37.5 86 18 100/72 (81) 92 Room Air 09/22/16 16:00 37.7 80 20 111/64 (80) 97 Room Air 09/22/16 16:00 95 Room Air 09/22/16 14:00 37.1 86 18 92/64 (73) 96 Nasal Cannula 2.0 Physical Exam General Appearance: WD/WN, no apparent distress Eyes: normal inspection, EOMI, sclerae normal ENT: normal ENT inspection, hearing grossly normal, pharynx normal Neck: supple, no adenopathy, thyroid normal, trachea midline Respiratory/Chest: chest non-tender, lungs clear, normal breath sounds, no respiratory distress Cardiovascular: regular rate, rhythm, no gallop, no murmur Abdomen: normal bowel sounds, non tender, soft, no organomegaly Extremities: non-tender, no calf tenderness Neurologic/Psychiatric: alert, oriented x 3 Skin: normal color, warm/dry, no rash Lymphatic: no adenopathy Laboratory Results RUN DATE: 09/22/16 [facility] PAGE 1 RUN TIME: 07 Specimen Inquiry PATIENT: MARNIE [place] LOC: KathyJOSEFA # : [id number] AGE/SX: 36/M ROOM: E105 REG : 09/21/[address]: Shabbir Jones MD : 1980 BED: 1 DIS : STATUS: ADM IN TLOC: SPEC #: [id number] TOÑO: 09/21/16 STATUS: RES REQ #: [id number] RECD: 09/21/[address]: Ayana Ronquillo PA- C SOURCE: BLOOD ENTR: 09/21/16 [facility] DR: Jose Cotton M.D. SPDESC: No Doctor, Assigned ORDERED: BLOOD CULTURE Procedure Result Verified Site BLD CULT Preliminary 09/22/16-719 NO GROWTH TO DATE. Last 24 Hours Test 09/22/16 14:00 09/22/16 17:30 09/22/16 17:33 09/22/16 22:19 Bedside Glucose 131 mg/dl 113 mg/dl Test 09/23/16 05:16 White Blood Count 8.02 K/uL Red Blood Count 3.97 M/uL Hemoglobin 12.0 g/dL Hematocrit 35.5 % Mean Corpuscular Volume 89.4 fL Mean Corpuscular Hemoglobin 30.2 pg Mean Corpuscular Hemoglobin Concent 33.8 g/dl Platelet Count 140 K/uL Mean Platelet Volume 11.2 fL Neutrophils (%) (Auto) 56.6 % Lymphocytes (%) (Auto) 28.9 % Monocytes (%) (Auto) 12.6 % Eosinophils (%) (Auto) 1.2 % Basophils (%) (Auto) 0.2 % Neutrophils # (Auto) 4.53 K/uL Lymphocytes # (Auto) 2.32 K/uL Monocytes # (Auto) 1.01 K/uL Eosinophils # (Auto) 0.10 K/uL Basophils # (Auto) 0.02 K/uL RDW Standard Deviation 44.3 fL RDW Coefficient of Variation 13.4 % Immature Granulocyte % (Auto) 0.5 % Immature Granulocyte # (Auto) 0.04 K/uL Red Blood Cell Morphology Unremarkable Sodium Level 141 mmol/L Potassium Level 3.4 mmol/L Chloride Level 107 mmol/L Carbon Dioxide Level 29 mmol/L Anion Gap 5.0 mmol/L Blood Urea Nitrogen 10 mg/dl Creatinine 0.95 mg/dl Est Creatinine Clear Calc Drug Dose 123.9 ml/min Estimated GFR () 118.0 Estimated GFR (Non- 101.9 BUN/Creatinine Ratio 10.2 Random Glucose 95 mg/dl Calcium Level 8.4 mg/dl Phosphorus Level 2.2 mg/dl Magnesium Level 2.0 mg/dl Total Bilirubin 0.5 mg/dl Direct Bilirubin < 0.1 mg/dl Aspartate Amino Transf (AST/SGOT) 21 U/L Alanine Aminotransferase (ALT/SGPT) 23 U/L Alkaline Phosphatase 60 U/L Total Protein 6.0 gm/dl Albumin 2.3 gm/dl [~ rep ct add3]] VENOUS DOPPLER LWR EXT BILA HISTORY: 36-year-old male presents with acute shock. TECHNIQUE: Multiple real-time sonographic images of the deep venous structures of the lower extremities were obtained assessing dhillon scale, color Doppler flow and spectral waveform appearance. FINDINGS: RIGHT LOWER EXTREMITY: The common femoral, profunda femoral, femoral, popliteal, and greater saphenous veins demonstrate complete compressibility with external transducer pressure and spontaneous and phasic spectral and color flow. The posterior tibial and peroneal veins demonstrate complete compressibility with external transducer pressure. LEFT LOWER EXTREMITY: The common femoral, profunda femoral, femoral, popliteal and greater saphenous veins demonstrated complete compressibility with external transducer pressure and spontaneous and phasic spectral and color flow.The posterior tibial and peroneal veins demonstrate complete compressibility with external transducer pressure. IMPRESSION: No sonographic evidence of deep venous thrombosis. Electronically signed by: Db Garcia 09/22/2016 9:28 AM Dictated Date/Time: 09/22/2016 9:26 AM The status of this report is Signed. Draft = Not yet reviewed or approved by Radiologist. Signed = Reviewed and approved by Radiologist. <AttendingPhy>Shabbir Jones MD</AttendingPhy> <FamilyPhy>Emelia Ravi D.O.</FamilyPhy> <PrimaryPhy>Emelia Ravi D.O.</PrimaryPhy> <UnitNumber> [id number]</UnitNumber> <VisitNumber>[id number]</VisitNumber> <PatientName> MARNIE [place]</PatientName> <DateOfBirth>1980</DateOfBirth> <Location> [facility]</Location> <ServiceDate>09/21/16</ServiceDate> <MNE>ESINDI</MNE> < OrderingPhy>Roberto Huddleston M.D.</OrderingPhy> <OrderingPhyMNE>f rep ord dr baker</ OrderingPhyMNE> <DictatingPhyMNE>f rep dict dr baker</DictatingPhyMNE> <CCListMNE> f rep ct olivia</CCListMNE> <AdmittingPhyMNE>f pt admit dr baker</AdmittingPhyMNE> < AttendingPhyMNE>f pt attend dr baker</AttendingPhyMNE> <ConsultingPhyMNE>f pt consult dr baker</ConsultingPhyMNE> <FamilyPhyMNE>f pt fam dr baker</FamilyPhyMNE> <OtherPhyMNE>f pt other dr baker</OtherPhyMNE> < PrimaryPhyMNE>f pt prim care dr baker</PrimaryPhyMNE> <ReferringPhyMNE>f pt referring dr baker</ReferringPhyMNE> Assessment and Plan Clinical picture of acute myocarditis in otherwise healthy 36 yo male, with viral infection (adeno, Coxsackie, CMV, EBV, others) most likely, but Lyme, anaplasma/Ehrlichia also possible. Autoimmune disease less likely. Patient to continue on present antibiotics, likely will be able to continue on doxycycline alone pending further studies.
[2016-09-23] MEDS: PANTOprazole SOD 40 MG TAB PO SCH (16:55)
[2016-09-24] VITALS (8 sets, daily range): BP systolic 106–116; BP diastolic 74–82; PULSE 63–78; TEMP 36.8–37; O2SAT 94–99
--- NOTE | 2016-09-24 01:39 | Death Pronouncement Note ---
Pronouncement Note Date & Time of Sep 24, 2016. 6:15 AM Pronouncement At time of pronouncement the patients pupils were fixed and dilated, there was no spontaneous respiratory effort, no palpable pulse, no audible heart tones, and no response to pain or voice. The patient was admitted to the hospital with a diagnosis of septic shock, secondary to neutropenic fever and chemotherapy for metastatic breast cancer stage IV. She was placed on vancomycin IV, Zosyn IV, fluconazole IV, nebulizer treatments, IV fluids and IV albumin. The patient was admitted as a level V DO NOT RESUSCITATE/DO NOT INTUBATE. Active diagnoses were that of pneumonia, pleural effusion, thrush, hypoglycemia , acute kidney injury, transaminitis, hypotension, lactic acidosis and tachycardia. At 6:15 AM, patient was found by nurses to no longer have spontaneous respirations, and no pulse. Her time of was noted at 6:15 AM. Routine postmortem protocol was followed.
[2016-09-24 06:06] LABS: BASO % 0.5 %; BASO ABS # 0.04 K/uL (0-0.2); COMPLETE YES; EOS % 2.8 %; HEMATOCRIT 38.2 % (42-52); IG% 0.4 %; LYMPH % 31.9 %; LYMPH ABS # 2.51 K/uL (1.2-3.4); MEAN CELL VOLUME 89.3 fL (80-100); MEAN CORPUSCULAR HEMOGLOBIN 29.2 pg (25-34); MEAN CORPUSCULAR HGB CONC 32.7 g/dl (32-36); MEAN PLATELET VOLUME 11.1 fL (7.4-10.4); NEUT % 54.4 %; PLATELET COUNT 165 K/uL (130-400); RED BLOOD COUNT 4.28 M/uL (4.7-6.1); WHITE BLOOD COUNT 7.87 K/uL (4.8-10.8)
[2016-09-24 06:31] LABS: ALT/SGPT 27 U/L (12-78); AST/SGOT 20 U/L (15-37); BLOOD UREA NITROGEN 13 mg/dl (7-18); BUN/CREATININE RATIO 11.7 (10-20); CALCIUM 8.8 mg/dl (8.5-10.1); CARBON DIOXIDE 28 mmol/L (21-32); CHLORIDE 106 mmol/L (98-107); GLUCOSE 95 mg/dl (70-99); POTASSIUM 3.7 mmol/L (3.5-5.1); SODIUM 142 mmol/L (136-145)
[2016-09-24 06:34] LABS: ALKALINE PHOSPHATASE 56 U/L (45-117); PHOSPHORUS 3.2 mg/dl (2.5-4.9)
--- NOTE | 2016-09-24 08:41 | ECHOCARDIOGRAM REPORT ---
*NOTICE TO RECEIVING [employer] This information is strictly Confidential and protected under [place] law. [place] law prohibits you from making any further disclosure of this information unless further disclosure is expressly permitted by the written consent of the person to whom it pertains or is authorized by law. A general authorization for the release of medical or other information is not sufficient for this purpose. Hospital accepts no responsibility if the information is made available to any other person, INCLUDING THE PATIENT. Interpretation Summary * Name: MARNIE [place] Study Date: 09/23/2016 06:24 AM BP: 112/77 mmHg * Patient Location: .MSICU\S\E105\S\1 HR: 61 * : 1980 (M/d/yyyy) Gender: Male Height: 71 in * Age: 36 yrs Ethnicity: CA Weight: 204 lb * Ordering Physician: Sterling Shanks * Referring Physician: Self, Referred * Performed By: Julia Wharton RCS * * Reason For Study: MYOPERICARDITIS * BSA: 2.1 m2 * -- Conclusions -- * The left ventricle is normal in size. * There is normal left ventricular wall thickness. * Left ventricular systolic function is normal. * Ejection Fraction = 60-65%. * The left ventricular wall motion is normal. * The right ventricle is normal in size and function. * Compared to the prior day study the LV function and pattern of contractility has improved. The RV size and function has improved. the size of the effusion is unchanged. Procedure Details * Limited views were obtained. * A contrast injection of Definity was performed to improve assessment of LV function. * Contrast was injected into an intravenous site in the central line. * One vial of Definity ultrasound contrast was diluted in normal saline to a total volume of 10 ml. A total of '1' ml of solution was administered during imaging. * Lot # [id number] of Definity utilized for procedure. * Expiration date OCT 31. * The attending nurse who injected the contrast agent was STAN DAVIS RN. Left Ventricle * The left ventricle is normal in size. * There is normal left ventricular wall thickness. * Left ventricular systolic function is normal. * Ejection Fraction = 60-65%. * The left ventricular wall motion is normal. Right Ventricle * The right ventricle is normal in size and function. Atria * The left atrium is borderline dilated. * Right atrial size is normal. Pericardium/Pleural * Small pericardial effusion. Great Vessels * Dilated inferior vena cava with reduced collapsability with sniff indicates an elevated right atrial pressure of 15 mmHg MMode 2D Measurements and Calculations LVAd ap4 39.0 cm\S\2 LVLd ap4 8.8 cm EDV(MOD-sp4) 137.6 ml EDV(sp4-el) 147.5 ml LVAs ap4 24.0 cm\S\2 LVLs ap4 7.2 cm ESV(MOD-sp4) 65.6 ml ESV(sp4-el) 68.3 ml EF(MOD-sp4) 52.3 % EF(sp4-el) 53.7 % LVAd ap2 38.0 cm\S\2 LVLd ap2 8.0 cm EDV(MOD-sp2) 148.6 ml EDV(sp2-el) 152.3 ml LVAs ap2 24.3 cm\S\2 LVLs ap2 6.7 cm ESV(MOD-sp2) 72.9 ml ESV(sp2-el) 74.4 ml EF(MOD-sp2) 50.9 % EF(sp2-el) 51.2 % LVLd %diff -9.20 % EDV(MOD-bp) 151.4 ml LVLs %diff -6.74 % ESV(MOD-bp) 71.6 ml EF(MOD-bp) 52.7 % SV(MOD-sp4) 72.0 ml SI(MOD-sp4) 33.9 ml/m\S\2 SV(MOD-sp2) 75.7 ml SI(MOD-sp2) 35.6 ml/m\S\2 SV(MOD-bp) 79.8 ml SI(MOD-bp) 37.5 ml/m\S\2 SV(sp4-el) 79.2 ml SI(sp4-el) 37.3 ml/m\S\2 SV(sp2-el) 77.9 ml SI(sp2-el) 36.6 ml/m\S\2
--- NOTE | 2016-09-24 08:54 | Cardiology Follow-Up ---
Subjective General Date of Service: Sep 24, 2016. Pt evaluation today including: conversation w/ patient, chart review, lab review, review of studies, conversation w/ product management consultant History of Present Illness The patient is a 36 year old male Allergies Coded Allergies: No Known Allergies (Unverified , 09/20/16) Social History Smoking Status: Never Smoker Hx Tobacco Use In Past Year?: No Hx Alcohol Use - Type And Amou: No Hx Substance Use - Type And Am: No Problem List Medical Problems: (1) Acute kidney injury Status: Acute (2) Fever Status: Acute (3) LLQ abdominal pain Status: Acute (4) Myocarditis Status: Acute Review of Systems Respiratory: No cough, No shortness of breath, No dyspnea at rest Cardiac: No chest pain, No edema, No palpitations Additional ROS Details: no fevers or chills Physical Exam Vital Signs Last Vital Signs Documentation Date Time Temp Pulse Resp B/P (MAP) Pulse Ox O2 Delivery O2 Flow Rate FiO2 09/24/16 08:00 99 Room Air 2.0 09/24/16 07:46 36.9 71 16 110/74 (86) Physical Exam Constitutional: General Apperance: well-developed Level of Distress: NAD Psychiatric: Mental Status: active & alert, normal affect Lungs: Respiratory effort: no dyspnea Auscultation: breath sounds normal, no wheezing, no rales/crackles, no rhonchi Cardiovascular: Heart Auscultation: RRR, no murmurs, no rubs, no gallops Abdomen: Bowel Sounds: diminished Inspection & Palpation: soft, non-distended Extremities: no edema Assessment and Plan Assessment and Plan 1. viral myopericarditis with associated fevers and chills, chest pain, mild global hypokinesis (on admission) and mildly elevated troponin and hypotension ( resolved) 2. Acute renal failure -resolved 3. Elevated lactic acid level--on admission 4. Elevated sedimentation rate and CRP 6. Pericarditis with pericardial effusion on Colchicine 0.6 mg daily Bedside echo personally reviewed (09/23) with small effusion. (slightly bigger than yesterday) LV function normal by Biplane Crowley's LVEF 60-65% and improved from yesterday RV size normal and function looks better Additional culture for [place], ehrlichiosis, anaplasmosis sent. No arrhythmias on Tele. Feels well. Try toprol 12.5 mg daily to reduce risk of atrial and ventricular arrhythmias and SCD. Watch for dizziness due to low BP. Colchicine 0.6 mg daily upon d/c as well If ok this pm and not dizzy and primary service wants to d/c then he could go home. No strenuous exercise or weight lifting for two weeks other than normal activity Will see in office in 2 weeks Continue Colchicine and add BB maybe tomorrow to reduce the risk of atrial and ventricular arrhythmias All this was discussed with the board liner operator service. Laboratory Results Last 24 Hours Test 09/24/16 05:17 White Blood Count 7.87 K/uL Red Blood Count 4.28 M/uL Hemoglobin 12.5 g/dL Hematocrit 38.2 % Mean Corpuscular Volume 89.3 fL Mean Corpuscular Hemoglobin 29.2 pg Mean Corpuscular Hemoglobin Concent 32.7 g/dl Platelet Count 165 K/uL Mean Platelet Volume 11.1 fL Neutrophils (%) (Auto) 54.4 % Lymphocytes (%) (Auto) 31.9 % Monocytes (%) (Auto) 10.0 % Eosinophils (%) (Auto) 2.8 % Basophils (%) (Auto) 0.5 % Neutrophils # (Auto) 4.28 K/uL Lymphocytes # (Auto) 2.51 K/uL Monocytes # (Auto) 0.79 K/uL Eosinophils # (Auto) 0.22 K/uL Basophils # (Auto) 0.04 K/uL RDW Standard Deviation 43.9 fL RDW Coefficient of Variation 13.3 % Immature Granulocyte % (Auto) 0.4 % Immature Granulocyte # (Auto) 0.03 K/uL Sodium Level 142 mmol/L Potassium Level 3.7 mmol/L Chloride Level 106 mmol/L Carbon Dioxide Level 28 mmol/L Anion Gap 8.0 mmol/L Blood Urea Nitrogen 13 mg/dl Creatinine 1.10 mg/dl Est Creatinine Clear Calc Drug Dose 106.5 ml/min Estimated GFR () 98.9 Estimated GFR (Non- 85.3 BUN/Creatinine Ratio 11.7 Random Glucose 95 mg/dl Calcium Level 8.8 mg/dl Phosphorus Level 3.2 mg/dl Magnesium Level 2.0 mg/dl Total Bilirubin 0.5 mg/dl Direct Bilirubin < 0.1 mg/dl Aspartate Amino Transf (AST/SGOT) 20 U/L Alanine Aminotransferase (ALT/SGPT) 27 U/L Alkaline Phosphatase 56 U/L Total Protein 6.3 gm/dl Albumin 2.5 gm/dl
[2016-09-24] MEDS ORDERED: METOPROLOL SUCC 25MG EXT REL TAB PO SCH (09:00)
[2016-09-24] MEDS: COLCHICINE 0.6 MG TAB PO SCH (09:01)
[2016-09-24] MEDS: PANTOprazole SOD 40 MG TAB PO SCH (09:01)
--- NOTE | 2016-09-24 11:12 | Family Medicine Progress Note ---
Progress Note Date of Service Sep 24, 2016. Subjective Pt evaluation today including: conversation w/ patient, physical exam, conversation w/ end user consultant, review of inpatient medication list Pain: minimal PO Intake: good Voiding: no voiding problems Patient feeling much better. Still having some mild chest pain and sweats when sleeping but otherwise doesn't have any complaints. Is feeling very fatigued as he did not sleep very much in the ICU Constitutional: + sweats, + weakness, + fatigue, No fever, No chills Respiratory: No cough, No sputum, No shortness of breath Cardiovascular: + chest pain, No palpitations Abdomen: No pain, No nausea, No vomiting, No diarrhea, No constipation Musculoskeletal: No joint pain, No muscle pain Skin: No rash, No itch, No new/changing skin lesions Medications Current Inpatient Medications Medications (Trade) Dose Ordered Sig/Neymar Route Start Time Stop Time Status Last Admin Dose Admin Ioversol (Optiray 320) 125 ml UD PRN IV 09/21/16 04:15 09/25/16 04:14 Acetaminophen (Tylenol Tab) 650 mg Q4H PRN PO 09/21/16 06:15 10/21/16 06:14 09/23/16 22:10 650 MG Lorazepam (Ativan Tab) 0.5 mg Q4H PRN PO 09/21/16 06:15 10/21/16 06:14 Morphine Sulfate (MoRPHine SULFATE INJ) 4 mg Q2H PRN IV 09/21/16 06:15 10/05/16 06:14 Colchicine (Colchicine Tab) 0.6 mg QAM PO 09/22/16 09:00 10/22/16 08:59 09/24/16 09:01 0.6 MG Ondansetron HCl (Zofran Inj) 4 mg Q6H PRN IV 09/21/16 16:45 10/21/16 16:44 Heparin Sodium (Porcine) (Heparin 10 Unit/ ml 5 ml Flush) 5 ml PRN PRN FLUSH 09/22/16 00:30 10/22/16 00:29 Pantoprazole Sodium (Protonix Tab) 40 mg QAM PO 09/23/16 11:00 10/23/16 10:59 09/24/16 09:01 40 MG Metoprolol Succinate (Toprol Xl Tab) 12.5 mg QAM PO 09/24/16 09:00 10/24/16 08:59 09/24/16 09:37 12.5 MG Objective Vital Signs Date Time Temp Pulse Resp B/P (MAP) Pulse Ox O2 Delivery O2 Flow Rate FiO2 09/24/16 08:00 99 Room Air 2.0 09/24/16 07:46 36.9 71 16 110/74 (86) 99 09/24/16 04:15 Room Air 09/24/16 03:46 36.8 78 17 112/79 (90) 95 Room Air 09/24/16 00:10 96 Room Air 09/24/16 00:00 37.0 63 16 106/75 (85) 94 Room Air 09/23/16 20:00 96 Room Air 09/23/16 19:43 37.3 69 18 106/82 (90) 96 Room Air 09/23/16 16:30 Room Air 09/23/16 15:46 36.6 60 16 107/80 (89) 98 Room Air 09/23/16 12:00 98 Room Air 09/23/16 12:00 71 18 108/56 (73) 93 Room Air Physical Exam Notes: General Appearance: WD/WN, no apparent distress, + pertinent finding (sitting in his chair at the bedside, happy and in no distress) ENT: hearing grossly normal, pharynx normal (erythematous) Neck: no JVD, no carotid bruits, trachea midline Respiratory/Chest: lungs clear, no respiratory distress, no accessory muscle use Cardiovascular: regular rate, rhythm, no edema, no murmur Abdomen: normal bowel sounds, non tender, soft Extremities: non-tender, no pedal edema, pelvis stable Neurologic/Psychiatric: alert, normal mood/affect, oriented x 3 Laboratory Results Results Past 24 Hours Test 09/24/16 05:17 Range/Units White Blood Count 7.87 4.8-10.8 K/uL Red Blood Count 4.28 4.7-6.1 M/uL Hemoglobin 12.5 14.0-18.0 g/dL Hematocrit 38.2 42-52 % Mean Corpuscular Volume 89.3 80-100 fL Mean Corpuscular Hemoglobin 29.2 25-34 pg Mean Corpuscular Hemoglobin Concent 32.7 32-36 g/dl Platelet Count 165 130-400 K/uL Mean Platelet Volume 11.1 7.4-10.4 fL Neutrophils (%) (Auto) 54.4 % Lymphocytes (%) (Auto) 31.9 % Monocytes (%) (Auto) 10.0 % Eosinophils (%) (Auto) 2.8 % Basophils (%) (Auto) 0.5 % Neutrophils # (Auto) 4.28 1.4-6.5 K/uL Lymphocytes # (Auto) 2.51 1.2-3.4 K/uL Monocytes # (Auto) 0.79 0.11-0.59 K/uL Eosinophils # (Auto) 0.22 0-0.5 K/uL Basophils # (Auto) 0.04 0-0.2 K/uL RDW Standard Deviation 43.9 36.4-46.3 fL RDW Coefficient of Variation 13.3 11.5-14.5 % Immature Granulocyte % (Auto) 0.4 % Immature Granulocyte # (Auto) 0.03 0.00-0.02 K/uL Sodium Level 142 136-145 mmol/L Potassium Level 3.7 3.5-5.1 mmol/L Chloride Level 106 98-107 mmol/L Carbon Dioxide Level 28 21-32 mmol/L Anion Gap 8.0 3-11 mmol/L Blood Urea Nitrogen 13 7-18 mg/dl Creatinine 1.10 0.60-1.40 mg/dl Est Creatinine Clear Calc Drug Dose 106.5 ml/min Estimated GFR () 98.9 Estimated GFR (Non- 85.3 BUN/Creatinine Ratio 11.7 10-20 Random Glucose 95 70-99 mg/dl Calcium Level 8.8 8.5-10.1 mg/dl Phosphorus Level 3.2 2.5-4.9 mg/dl Magnesium Level 2.0 1.8-2.4 mg/dl Total Bilirubin 0.5 0.2-1 mg/dl Direct Bilirubin < 0.1 0-0.2 mg/dl Aspartate Amino Transf (AST/SGOT) 20 15-37 U/L Alanine Aminotransferase (ALT/SGPT) 27 12-78 U/L Alkaline Phosphatase 56 45-117 U/L Total Protein 6.3 6.4-8.2 gm/dl Albumin 2.5 3.4-5.0 gm/dl Assessment and Plan 36 year old male in the ICU due to myopericarditis. Is currently stable and progressing well. Viral Myopericarditis - Echo today showed improved LV function of 60-65. No vegetations. - Colchicine .6mg daily and morphine prn - Continue doxy - ID consult with [place], erlichiosis, anaplasmosis, EBV, CMV pending. Lyme negative - Cardiology started metoprolol 12.5 mg PO - Will f/u with [facility] as outpatient Hypophosphatemia - resolved - 3.2, continue to trend Disp - remove central line today FULL CODE Continued [facility] stay due to: other
[2016-09-24] MEDS ORDERED: DOXY100C76 PO (14:01)
[2016-09-24] MEDS ORDERED: TPRSR25 PO (14:01)
[2016-09-24] MEDS ORDERED: CLC6 PO (14:01)
--- NOTE | 2016-09-24 14:06 | Discharge Instructions ---
Discharge Instructions Date of Service Sep 24, 2016. Admission Reason for Admission: SHOCK Discharge Discharge Diagnosis / Problem: Myopericarditis Discharge Goals Goal(s): Decrease discomfort, Improve disease control, Prevent Disease Progression Activity Recommendations Activity Limitations: per Instructions/Follow-up section . Instructions / Follow-Up Instructions / Follow-Up We will be sending you home with a prescription for doxycycline, colchicine and metoprolol. Please pick these up from your pharmacy Please follow up with Dr. Shanks ([id number]) in his office next week. You should also follow up with your PCP. Please relax, drink plenty of fluids and eat a well balanced diet. If you have any worsening chest pain, shortness of breath or fevers greater then 100.4 then please come back to the emergency department Current Hospital Diet Patient's current hospital diet: Regular Diet Discharge Diet Recommended Diet: Regular Diet Pending Studies Studies pending at discharge: yes List of pending studies: Viral panels Medical Emergencies . Who to Call and When: Medical Emergencies: If at any time you feel your situation is an emergency, please call 911 immediately. . Non-Emergent Contact Non-Emergency issues call your: Primary Care Provider . . "Provider Documentation" section prepared by Jose Arita. . VTE Core Measure Inpt VTE Proph given/why not?: SCD's
--- NOTE | 2016-09-24 17:19 | Discharge Summary ---
Discharge Summary Date of Service Sep 24, 2016. 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 (Jose Arita MD) Medication Reconciliation New Medications: Doxycycline Monohydrate (Monodox) 100 Mg Cap 100 MG PO DAILY for 11 Days, #11 CAP Colchicine (Colcrys) 0.6 Mg Tab 0.6 MG PO QAM for 30 Days, #30 TAB Metoprolol Succinate (Metoprolol Succinate ER) 25 Mg Tabcr 12.5 MG PO QAM for 30 Days, #15 TABS Discharge Exam Patient sitting comfortably at the side of his bed Still having mild chest pain at night as well as sweats that have been improving He is walking around the [place] and is in no acute distress Review of Systems: Constitutional: + sweats, + fatigue, No fever, No chills Respiratory: No cough, No sputum, No shortness of breath, No dyspnea on exertion Cardiovascular: + chest pain Musculoskeletal: No joint pain, No muscle pain Integumentary: No rash, No itch, No new/changing skin lesions Physical Exam: General Appearance: WD/WN, no apparent distress ENT: hearing grossly normal, pharynx normal (erythematous) Respiratory/Chest: lungs clear, no respiratory distress, no accessory muscle use Cardiovascular: regular rate, rhythm, no JVD, no murmur, normal peripheral pulses Abdomen / GI: normal bowel sounds, non tender, soft Extremities: no calf tenderness, no pedal edema, non-tender Neurologic/Psychiatric: alert, normal mood/affect, oriented x 3 Skin: normal color, warm/dry, no rash (Jose Arita MD) Hospital Course 36 year old male with no significant medical history presented with 3 day history of fever, nausea, vomiting and diarrhea and was treated symptomatically and sent home. He felt improved and then woke from his sleep with central chest pain and lightheadedness. He returned to the ER and was found to be hypotensive with initial labs showing a troponin of 4 and EKG was significant for low voltage. His BP did not initially respond to fluids and he was placed on a low dose of dobutamine which lead to the improvement. Cardiology were consulted and he had an echocardiogram at the bedside which showed an mild global hypokinesis with an EF of 50%. He was admitted to the ICU for further close monitoring with gentle IVF and IV antibiotics. In the ICU he was started on colchicine .06mg. He also had viral panels and blood cultures sent to the lab. The following day the patient had a repeat echo and repeat troponin which both improved from the day previously. The infectious disease doctor was consulted who suggested started doxycycline for tick born illness coverage. On 09/23 he started feeling much better and was sitting at the bedside. His EF had improved and he was taken off the IVF. He also had some of his AB stopped except for the doxycycline. The patient was transferred to the telemetry unit On 09/24 the patient was started on a BB for protection against arrythmias and he was discharged with f/u with his PCP and Dr. Shanks. He was discharged on doxycycline, colchicine and metoprolol. The patient had several viral panels pending at discharge. Total Time Spent: Less than 30 minutes This includes examination of the patient, discharge planning, medication reconciliation, and communication with other providers. (Jose Arita MD) Resident Physician Supervision Note: I interviewed and examined the patient. Discussed with Dr. Arita and agree with findings and plan as documented in the note. Any exceptions or clarifications are listed here: None Documented By: Joseph Tim while discussing his case with Dr Arita, pt was making laps around the halls of his unit at a very fast pace. feeling good. no f/c/s. no cp no lightheaded , no worrisome findings on monitor. very desirous of going home. all other ROS otherwise negative except for as above vitals noted nad breathing unlabored no pallor or icterus myopericarditis - viral vs tick borne (anaplasmosis) - can't really distinguish clinically, lab testing not exceedingly reliable and will take a week. safe for home on colchicine for possible viral, doxy for possible tick borne, metoprolol as suggested by cardiology. outpt f/u (Joseph Tim, D.O.) Discharge Instructions Please refer to the electronic Patient Visit Report (Discharge Instructions) for additional information. (Jose Arita MD) Additional Copies To Sterling Shanks DO; Emelia Ravi D.O.
[2016-09-25 16:40] LABS: CMV DNA PCR QUANT SOURCE Plasma; CMV DNA QN REAL TIME PCR <200 IU/mL (<200); EBV DNA QUANT PCR <200 copies/mL (<200); EBV DNA QUANT SOURCE Plasma
[2016-09-26 18:05] LABS: COXSACKIE A10 <1:8; COXSACKIE A16 <1:8; COXSACKIE A2 <1:8; COXSACKIE A4 <1:8; COXSACKIE A7 <1:8; COXSACKIE A9 <1:8; COXSACKIE B1 <1:8 (<1:8); COXSACKIE B2 <1:8 (<1:8); COXSACKIE B3 <1:8 (<1:8); COXSACKIE B4 <1:8 (<1:8); COXSACKIE B5 <1:8 (<1:8); CYTOMEGALOVIRUS IGG AB <0.60 U/ML
[2016-09-28 23:33] LABS: ANAPLASMA PHAGOCYTOPHIL DNA NOT DETECTED; EHRLICHIA CHAFF IGG AB <1:64 (<1:64); EHRLICHIA CHAFF IGM AB <1:20 (<1:20)
--- NOTE | 2016-10-17 08:58 | EDITING REQUIRED CODING QUERY ---
CODING QUERY To promote full compliance with coding requirements relating to patient care, provider participation is requested in all cases of machined parts quality inspector uncertainty. Please assist us with the question(s) below: Coding Question(s): Cardiogenic shock and septic shock were only documented on one progress note could you please clarify the diagnosis Physician's Response(s): ( ) Cardiogenic shock/septic shock POA ( ) Cardiogenic shock/septic shock Not POA ( ) Cardiogenic shock/septic shock RULED OUT ( ) OTHER (PLEASE SPECIFY) Thank you Mary Canseco Principal Diagnosis: "_that condition established after study, to be chiefly responsible for occasioning the admission of the patient to the hospital for care." Co-Existing Principal Diagnosis: "_when two or more diagnoses equally meet the criteria for principal diagnosis as determined by the circumstances of admission, diagnostic work up, and/or therapy provided, and the Alphabetic Index, Tabular List, or another coding guideline does not provide sequencing direction, any one of the diagnoses may be sequenced first." "When the physician has documented what appears to be a current diagnosis in the body of the record, but has not included the diagnosis in the final diagnostic statement, the physician should be asked whether the diagnosis should be added." ([facility] 2 QTR90. p3-4)
== END 2016-09-24 14:29 | disposition home or self-care (01) | DRG 314 ==
LOC: C.EDB 03:12 → C.MSICU 07:33 → ENRESERV 07:39 → C.2E 09-23 14:14
PROVIDERS: ADMIT Internal Medicine; ATTEND Internal Medicine
PROC: 05HM33Z Insertion of Infusion Device into Right Internal Jugular Vein, Percutaneous Approach (ICD-10-PCS; principal; 2016-09-21)
DX: I30.1 Infective pericarditis (principal); R57.0 Cardiogenic shock; I40.9 Acute myocarditis, unspecified; N17.9 Acute kidney failure, unspecified; Z80.1 Family history of malignant neoplasm of trachea, bronchus and lung; E87.6 Hypokalemia; E83.39 Other disorders of phosphorus metabolism; B33.8 Other specified viral diseases; I95.9 Hypotension, unspecified